=== PATIENT | male | born 1955 | race Caucasian/White ===

== ENCOUNTER 2017-04-04 16:49 | Inpatient (IN) ==
--- NOTE | 2017-04-04 15:29 | Cardiothoracic History & Phys ---
History of Present Illness Chief complaint: Chest pain History of present illness: Mr. Silva is a 62 year old male who presented to [facility] for evaluation of recent onset exertional chest pain. Patient is patient of Dr. Palmer'von who has previously undergone stenting of the circumflex coronary artery. He was admitted for further evaluation. Patient underwent cardiac catheterization at [facility] and was found to have critical blockage of the stented coronary artery distal to the area of stenting as well as 2 additional coronary arteries with significant stenoses. Patient was referred for bypass surgery. Past medical history is significant for an allergy to Bystolic and also for the fact that he is a non-smoker and nondrinker. Review of systems social history and family history are noncontributory. Physical examination patient is well-developed well-nourished man in no acute distress. Examination of head eyes ears nose and throat show the pupils are equal and reactive to light extraocular motions are intact. The oropharynx is benign and examination of the neck shows that there are no masses there is no thyromegaly and there is no lymphadenopathy. Examination chest is clear to percussion auscultation. Examination heart shows no soft signs of murmur or gallop rhythm. Examination of the abdomen is soft nontender there are no masses or organomegaly. Examination extremities shows no cyanosis or edema. Neurological examination is grossly within normal limits. Assessment: Coronary artery disease status post previous coronary stenting. Plan: Coronary bypass grafting on Sunday, April 09, 2017. . Quality Measures - VTE Contraindication to Pharmacological VTE Prophylaxis: High Risk of Bleeding
[~2017-04-04 16:49] MED LIST: ASPIRIN EC 325 MG TABLET PO ONE; CLORAZEPATE 3.75 MG TABLET PO PRN; DEXTROSE 50% 25 GM/50 ML SYRINGE IV PRN; DEXTROSE 50% 25 GM/50 ML VIAL IV PRN; GLUCAGON 1 MG VIAL IM PRN
[2017-04-04] MEDS ORDERED: CARVEDILOL 6.25 MG TABLET PO STA (17:18)
[2017-04-04] MEDS ORDERED: ZALEPLON 5 MG CAPSULE PO PRN (17:32)
[2017-04-04] MEDS ORDERED: ASPIRIN EC 325 MG TABLET PO ONE (18:43)
[2017-04-04] MEDS ORDERED: diphenhydrAMINE CAP 50 MG CAPSULE PO PRN (19:41)
[2017-04-04] MEDS ORDERED: METOPROLOL TARTRATE 25 MG TABLET PO SCH (21:00)
[2017-04-04] MEDS: LISINOPRIL 5 MG TABLET PO SCH (21:24)
[2017-04-04] MEDS: CARVEDILOL 12.5 MG TABLET PO SCH (21:24)
[2017-04-04] MEDS: CHLORHEXIDINE 0.12% ORAL RINSE 60 ML BOTTLE SWISH/SPIT SCH (21:25)
[2017-04-04] MEDS: PANTOPRAZOLE 40 MG TABLET PO SCH (21:25)
[2017-04-04] MEDS: CARVEDILOL 6.25 MG TABLET PO SCH (21:26)
[2017-04-04] MEDS: SODIUM CHLORIDE 0.9% 1,000 ML IV SCH (21:26)
[2017-04-05 04:54] LABS: ABG Base Excess 1.6 MMOL/L (-2.5-2.5); ABG HCO3 25.8 MMOL/L (20-26); ABG Oxygen Saturation 96.3 % (95-100); ABG PCO2 43.1 MM HG (35-48); ABG PO2 81.7 MM HG (80-95); ABG TCO2 23.4 MMOL/L (23-27); Allen Test Positive; Pt O2 Delivery Device Room Air
[2017-04-05 05:50] LABS: Basophils # 0.1 10*3/uL (0.0-0.2); Eosinophils # 0.3 10*3/uL (0.0-0.87); Eosinophils % 3.5 % (0.00-10.9); Hematocrit 38.8 VOL% (42.0-52.0); Hemoglobin 13.2 GM/DL (14.0-18.0); Immature Granulocytes % 0.4 %; Immature Granulocytes Absolute 0.03 #; Lymphocytes # 1.8 10*3/uL (1.4-4.0); Lymphocytes % 22.8 % (21.2-54.2); Mean Corpuscular Hemoglobin 30 PG (27-34); Mean Corpuscular Volume 87.6 FL (87-102); Monocytes # 0.7 10*3/uL (0.11-0.8); Monocytes % 9.2 % (1.7-12.7); Neutrophils # 5.1 10*3/uL (1.4-7.4); Neutrophils % 63.1 % (38.7-73.9); Platelet Count 218 T/CUMM (130-400); Red Blood Count 4.43 MC/CUMM (3.8-5.5); Red Cell Distribution Width 12.8 % (9.3-17.3)
[2017-04-05 06:19] LABS: Albumin 3.7 G/DL (3.4-5.0); Bilirubin,Total 1.2 MG/DL (0.2-1.0); Calcium 8.7 MG/DL (8.5-10.1); Osmolality,Calculated 276.5 MOS/KG (273-304); Potassium 3.9 MMOL/L (3.5-5.1); Total Protein 6.9 G/DL (6.4-8.3)
--- NOTE | 2017-04-05 07:10 | EKG Report ---
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
--- NOTE | 2017-04-05 08:32 | Cardiothoracic Progress Note ---
Cardiothoracic Subjective Interval history: Patient is pain-free and stable and his preoperative laboratory work x-rays and cardiogram all look within normal limits. He will be ready for surgery on Sunday which will be 5 days off Plavix. Exam (Progress Note) - Constitutional Vitals: Period Temp Pulse Resp BP Sys/Mann Pulse Ox Last 24 Hr 97.5 F-98.2 F 69-74 10-18 120-133/65-78 94-98 Result/EKG - Labs CBC & BMP: 04/05/17 05:14 04/05/17 05:14 Labs: Laboratory Results - last 24 hr 04/05/17 04/05/17 04/05/17 04:35 05:14 05:14 WBC 8.0 RBC 4.43 Hgb 13.2 L Hct 38.8 L MCV 87.6 MCH 30 MCHC 34.0 RDW 12.8 Plt Count 218 MPV 11.0 Neut % (Auto) 63.1 Lymph % (Auto) 22.8 [place] % (Auto) 9.2 Eos % (Auto) 3.5 Baso % (Auto) 1.0 H Neut # (Auto) 5.1 Lymph # (Auto) 1.8 [place] # (Auto) 0.7 Eos # (Auto) 0.3 Baso # (Auto) 0.1 Immature Gran % 0.4 Nucleated RBC % 0.0 Immature Gran # 0.03 Nucleated RBCs # 0.00 Immature Plt Fraction 0.0 ABG pH 7.400 ABG pCO2 43.1 ABG pO2 81.7 ABG HCO3 25.8 ABG Total CO2 23.4 ABG O2 Saturation 96.3 ABG Base Excess 1.6 FiO2 28.00 Sodium 139 Potassium 3.9 Chloride 105 Carbon Dioxide 26 Anion Gap 11.9 BUN 15 Creatinine 1.30 GFR Calculation 72 BUN/Creatinine Ratio 11.00 Glucose 89 Calculated Osmolality 276.5 Calcium 8.7 Total Bilirubin 1.20 H AST 23 ALT 25 Alkaline Phosphatase 92 Total Protein 6.9 Albumin 3.7 Globulin 3.2 Albumin/Globulin Ratio 1.1 Quality Measures - VTE Contraindication to Pharmacological VTE Prophylaxis: High Risk of Bleeding
--- NOTE | 2017-04-05 08:49 | XRay Report ---
Exam: XR chest 2V Date: 04/05/2017 4:00 AM Indication: Coronary artery disease Comparison: None Technical: PA lateral Findings: External cardiac leads are present. Degenerative change present along the thoracic spine with anterolateral marginal osteophytes and underlying granuloma change. The mediastinum is otherwise intact. ASVD is present. Degenerative change present in the costochondral cartilage with calcifications. No pneumothorax. Impression: 1. No acute cardiomegaly pathology 2. Underlying granuloma changes 3. Degenerative spondylosis change thoracic spine 4. Underlying ASVD PROCEDURE INTERPRETED AT [facility] DEPARTMENT OF RADIOLOGY Final Report Signed by: Dr. Carlos Brower
[2017-04-05] MEDS: ENOXAPARIN 60 MG/0.6 ML SYRINGE SUBCUT SCH (08:54)
[2017-04-05] MEDS: PANTOPRAZOLE 40 MG TABLET PO SCH ×2 (08:54→20:20)
[2017-04-05] MEDS: CARVEDILOL 12.5 MG TABLET PO SCH ×3 (08:55→20:20)
[2017-04-05] MEDS: LISINOPRIL 5 MG TABLET PO SCH ×3 (08:55→20:20)
[2017-04-05] MEDS: CARVEDILOL 6.25 MG TABLET PO SCH ×3 (08:56→20:20)
[2017-04-05] MEDS: CHLORHEXIDINE 0.12% ORAL RINSE 60 ML BOTTLE SWISH/SPIT SCH ×2 (20:19→20:20)
[2017-04-05] MEDS: SODIUM CHLORIDE 0.9% 1,000 ML IV SCH (20:19)
[2017-04-05] MEDS: ATORVASTATIN 10 MG TABLET PO SCH (20:20)
[2017-04-06] MEDS ORDERED: ACETAMINOPHEN 325 MG TABLET PO PRN (04:01)
--- NOTE | 2017-04-06 06:20 | Cardiothoracic Progress Note ---
Cardiothoracic Subjective Interval history: Patient has been pain-free. Vital signs have been stable. We are planning for surgery Sunday morning. Exam (Progress Note) - Constitutional Vitals: Period Temp Pulse Resp BP Sys/Mann Pulse Ox Last 24 Hr 97.9 F-98.4 F 69-85 16-18 109-127/57-72 94-97 Result/EKG - Labs CBC & BMP: 04/05/17 05:14 04/05/17 05:14 Quality Measures - VTE Contraindication to Pharmacological VTE Prophylaxis: High Risk of Bleeding
[2017-04-06] MEDS: ATORVASTATIN 10 MG TABLET PO SCH ×2 (08:27→20:43)
[2017-04-06] MEDS: CARVEDILOL 6.25 MG TABLET PO SCH ×3 (08:27→20:43)
[2017-04-06] MEDS: CARVEDILOL 12.5 MG TABLET PO SCH ×3 (08:27→20:43)
[2017-04-06] MEDS: ASPIRIN EC 325 MG TABLET PO SCH (08:27)
[2017-04-06] MEDS: ENOXAPARIN 60 MG/0.6 ML SYRINGE SUBCUT SCH (08:27)
[2017-04-06] MEDS: PANTOPRAZOLE 40 MG TABLET PO SCH ×2 (08:28→20:43)
[2017-04-06] MEDS: LISINOPRIL 5 MG TABLET PO SCH ×3 (08:28→20:43)
[2017-04-06] MEDS: CHLORHEXIDINE 0.12% ORAL RINSE 60 ML BOTTLE SWISH/SPIT SCH ×2 (08:28→20:43)
[2017-04-06] MEDS ORDERED: MAGNESIUM HYDROXIDE SUSP 30 ML UDCUP PO PRN (10:56)
[2017-04-06] MEDS: SODIUM CHLORIDE 0.9% 1,000 ML IV SCH (18:42)
[2017-04-06] MEDS: DOCUSATE SODIUM 100 MG CAPSULE PO SCH (20:43)
[2017-04-07] MEDS: CARVEDILOL 6.25 MG TABLET PO SCH ×3 (08:25→21:12)
[2017-04-07] MEDS: ASPIRIN EC 325 MG TABLET PO SCH (08:25)
[2017-04-07] MEDS: CARVEDILOL 12.5 MG TABLET PO SCH ×3 (08:25→21:12)
[2017-04-07] MEDS: LISINOPRIL 5 MG TABLET PO SCH ×3 (08:25→21:12)
[2017-04-07] MEDS: DOCUSATE SODIUM 100 MG CAPSULE PO SCH ×2 (08:26→21:12)
[2017-04-07] MEDS: ATORVASTATIN 10 MG TABLET PO SCH ×2 (08:29→21:12)
[2017-04-07] MEDS: ENOXAPARIN 60 MG/0.6 ML SYRINGE SUBCUT SCH (08:30)
--- NOTE | 2017-04-07 08:37 | Cardiothoracic Progress Note ---
Cardiothoracic Subjective Interval history: Patient is ready for surgery on Sunday. Exam (Progress Note) - Constitutional Vitals: Period Temp Pulse Resp BP Sys/Mann Pulse Ox Last 24 Hr 97.5 F-98.9 F 60-75 12-18 97-125/61-74 93-98 Result/EKG - Labs CBC & BMP: 04/05/17 05:14 04/05/17 05:14 Quality Measures - VTE Contraindication to Pharmacological VTE Prophylaxis: High Risk of Bleeding
[2017-04-07] MEDS: PANTOPRAZOLE 40 MG TABLET PO SCH ×2 (08:39→21:12)
[2017-04-07] MEDS: CHLORHEXIDINE 0.12% ORAL RINSE 60 ML BOTTLE SWISH/SPIT SCH ×2 (09:43→21:12)
[2017-04-07] MEDS: CHLORHEXIDINE 4% SOLN 118 ML BOTTLE TOP SCH (11:54)
[2017-04-07] MEDS: SODIUM CHLORIDE 0.9% 1,000 ML IV SCH (17:20)
--- NOTE | 2017-04-08 07:54 | Cardiothoracic Progress Note ---
Cardiothoracic Subjective Interval history: Patient is ready for surgery in the morning. Exam (Progress Note) - Constitutional Vitals: Period Temp Pulse Resp BP Sys/Mann Pulse Ox Last 24 Hr 97.5 F-98.2 F 64-75 12-20 102-125/61-70 95-100 Result/EKG - Labs CBC & BMP: 04/05/17 05:14 04/05/17 05:14 Quality Measures - VTE Contraindication to Pharmacological VTE Prophylaxis: High Risk of Bleeding
[2017-04-08] MEDS: LISINOPRIL 5 MG TABLET PO SCH ×3 (08:54→20:48)
[2017-04-08] MEDS: DOCUSATE SODIUM 100 MG CAPSULE PO SCH ×2 (08:54→20:48)
[2017-04-08] MEDS: CARVEDILOL 12.5 MG TABLET PO SCH ×3 (08:54→20:48)
[2017-04-08] MEDS: ATORVASTATIN 10 MG TABLET PO SCH ×2 (08:54→20:48)
[2017-04-08] MEDS: PANTOPRAZOLE 40 MG TABLET PO SCH ×2 (08:55→20:48)
[2017-04-08] MEDS: ASPIRIN EC 325 MG TABLET PO SCH (08:55)
[2017-04-08] MEDS: CHLORHEXIDINE 0.12% ORAL RINSE 60 ML BOTTLE SWISH/SPIT SCH ×2 (08:55→20:48)
[2017-04-08] MEDS: CHLORHEXIDINE 4% SOLN 118 ML BOTTLE TOP SCH ×2 (09:35→20:48)
[2017-04-08] MEDS ORDERED: DIAZEPAM 5 MG TABLET PO ONE (11:48)
[2017-04-08] MEDS ORDERED: LACTATED RINGERS 1,000 ML IV SCH (12:00)
[2017-04-09] MEDS ORDERED: PAPAVERINE 60 MG/2 ML VIAL ONE (04:33)
[2017-04-09] MEDS ORDERED: VANCOMYCIN 1,000 MG VIAL ONE (04:34)
[2017-04-09] MEDS ORDERED: ALBUTEROL/IPRATROPIUM 3 ML NEB RESP TX ONE (05:37)
[2017-04-09] MEDS ORDERED: VANCOMYCIN INJ 1,000 MG in SODIUM CHLORIDE 0.9% 250 ML IV ONE (06:00)
[2017-04-09] MEDS ORDERED: DIAZEPAM 5 MG TABLET PO ONE (06:00)
[2017-04-09] MEDS ORDERED: LACTATED RINGERS 1,000 ML IV SCH (06:00)
[2017-04-09] MEDS: CARVEDILOL 12.5 MG TABLET PO SCH ×2 (06:09→09:13)
[2017-04-09] MEDS: PANTOPRAZOLE 40 MG TABLET PO SCH ×4 (06:09→20:18)
[2017-04-09] MEDS ORDERED: CEFUROXIME INJ 1,500 MG in SODIUM CHLORIDE 0.9% 100 ML IV ONE (06:30)
[2017-04-09] MEDS ORDERED: ALBUTEROL 2.5 MG/3 ML NEB RESP TX ONE (06:37)
[2017-04-09 07:43] LABS: ABG Base Excess -1.7 MMOL/L (-2.5-2.5); ABG Oxygen Saturation 99.8 % (95-100); ABG PCO2 33.6 MM HG (35-48); ABG PH 7.425 (7.35-7.45); ABG TCO2 19.5 MMOL/L (23-27); Glucose Heart Surgery 84 MG/DL (74-106); Hematocrit Heart Surgery 36.3 PERCENT (42-52); Hemoglobin Heart Surgery 11.8 G/DL (14.0-18.0); Ionized Calcium Arterial 1.15 MMOL/L (1.21-1.46); PCO2 Patient Temp Arterial 33.6 MMHG; PH Patient Temp Arterial 7.425; Patient Temperature 37 CELCIUS; Potassium Heart/CVR 3.6 MMOL/L (3.5-5.1); Sodium Heart/CVR 138 MMOL/L (135-145)
[2017-04-09] MEDS ORDERED: PHENYLEPHRINE DRIP 40 MG/250 ML PREMIX IV ONE (07:43)
[2017-04-09] MEDS ORDERED: NITROPRUSSIDE 50 MG/2 ML VIAL ONE (07:43)
[2017-04-09] MEDS ORDERED: CALCIUM CHLORIDE 1,000 MG/10 ML SYRINGE IV ONE (07:44)
[2017-04-09] MEDS ORDERED: ALBUMIN 5% 12.5 GM/250 ML VIAL IV ONE (07:44)
[2017-04-09] MEDS ORDERED: POTASSIUM CHLORIDE RIDER 100 ML IV ONE (07:44)
[2017-04-09 07:51] LABS: Apearance,Urine CLEAR (Clear); Bilirubin,Urine Negative (Negative); Blood, Urine Small mg/dL (Negative); Glucose,Urine (UA) Negative (Negative); Ketones,Urine Negative (Negative); Mucus,Urine Occasional /LPF (Occasional); Nitrite,Urine Negative (Negative); Protein,Urine Negative; RBC,Urine 1 /HPF (0-4); Squamous Epithelial Cell,Urine Occasional /HPF (0-10); Urine Color Yellow (Yellow); Urine Specific Gravity 1.012 (1.001-1.035); Urine Urobilinogen < 2.0 EU/DL (0.2-1.0); WBC,Urine 1 /HPF (0-6)
[2017-04-09] MEDS: ASPIRIN EC 325 MG TABLET PO SCH (09:12)
[2017-04-09] MEDS: DOCUSATE SODIUM 100 MG CAPSULE PO SCH (09:12)
[2017-04-09 09:13] LABS: Hematocrit Heart Surgery 25.9 PERCENT (42-52); Hemoglobin Heart Surgery 8.3 G/DL (14.0-18.0); PCO2 Patient Temp Venous 39.3 MM HG; PH Patient Temp Venous 7.398; PO2 Patient Temp Venous 39.2 MM HG; VBG Base Excess -0.3 MEQ/L (0-4); VBG Oxygen Saturation 82.7 %; VBG PCO2 45.4 MMHG (41-51); VBG PH 7.355; VBG PO2 48.1 MMHG (17-40)
[2017-04-09] MEDS: ATORVASTATIN 10 MG TABLET PO SCH (09:13)
[2017-04-09] MEDS: CHLORHEXIDINE 0.12% ORAL RINSE 60 ML BOTTLE SWISH/SPIT SCH (09:13)
[2017-04-09] MEDS: CHLORHEXIDINE 4% SOLN 118 ML BOTTLE TOP SCH (09:13)
[2017-04-09] MEDS: LISINOPRIL 5 MG TABLET PO SCH (09:13)
[2017-04-09 09:42] LABS: Hematocrit Heart Surgery 29.4 PERCENT (42-52); Hemoglobin Heart Surgery 9.5 G/DL (14.0-18.0); PH Patient Temp Venous 7.402; PO2 Patient Temp Venous 39.9 MM HG; Potassium Heart/CVR 4.6 MMOL/L (3.5-5.1); VBG Base Excess -0.2 MEQ/L (0-4); VBG Oxygen Saturation 83.1 %; VBG PCO2 45.1 MMHG (41-51); VBG PH 7.359; VBG PO2 49.1 MMHG (17-40)
[2017-04-09 10:10] LABS: Hematocrit Heart Surgery 26.9 PERCENT (42-52); Hemoglobin Heart Surgery 8.6 G/DL (14.0-18.0); PH Patient Temp Venous 7.371; Potassium Heart/CVR 4.9 MMOL/L (3.5-5.1); VBG Base Excess -0.4 MEQ/L (0-4); VBG HCO3 23.7 MEQ/L (24-28); VBG Oxygen Saturation 68.1 %; VBG PCO2 45.1 MMHG (41-51); VBG PH 7.356; VBG PO2 37.5 MMHG (17-40)
[2017-04-09] MEDS ORDERED: PHENYLEPHRINE DRIP 20 MG/250 ML PREMIX IV ONE ×2 (10:25→12:22)
[2017-04-09] MEDS ORDERED: FUROSEMIDE 20 MG/2 ML VIAL ONE (10:25)
[2017-04-09] MEDS ORDERED: SODIUM BICARBONATE 50 MEQ/50 ML SYRINGE IV ONE (10:25)
[2017-04-09] MEDS ORDERED: MAGNESIUM SULFATE 1 GM/2 ML VIAL ONE (10:25)
[2017-04-09] MEDS ORDERED: HEPARIN 10,000 UNIT/10 ML VIAL ONE (10:25)
[2017-04-09] MEDS ORDERED: ALBUMIN 25% 25 GM/100 ML VIAL IV ONE (10:25)
[2017-04-09] MEDS ORDERED: DEXTROSE 5% KCL 20 MEQ 20 MEQ/1,000 ML BAG IV ONE (10:25)
[2017-04-09] MEDS ORDERED: methylPREDNISolone SOD SUC 1,000 MG/8 ML VIAL ONE (10:25)
[2017-04-09] MEDS ORDERED: PROTAMINE SULFATE 250 MG/25 ML VIAL IV ONE (10:25)
[2017-04-09 10:42] LABS: ABG Base Excess -1.1 MMOL/L (-2.5-2.5); ABG HCO3 23.5 MMOL/L (20-26); ABG Oxygen Saturation 99.8 % (95-100); ABG PCO2 33.9 MM HG (35-48); ABG PH 7.433 (7.35-7.45); ABG TCO2 20.8 MMOL/L (23-27); Glucose Heart Surgery 140 MG/DL (74-106); Hematocrit Heart Surgery 28.7 PERCENT (42-52); Hemoglobin Heart Surgery 9.3 G/DL (14.0-18.0); Ionized Calcium Arterial 1.14 MMOL/L (1.21-1.46); PCO2 Patient Temp Arterial 33.9 MMHG; PH Patient Temp Arterial 7.433; Patient Temperature 37 CELCIUS; Potassium Heart/CVR 3.7 MMOL/L (3.5-5.1); Sodium Heart/CVR 137 MMOL/L (135-145)
[2017-04-09] MEDS ORDERED: PROTAMINE SULFATE 50 MG/5 ML VIAL IV ONE ×2 (11:30→11:39)
[2017-04-09] MEDS: LACTATED RINGERS 1,000 ML IV PRN ×4 (11:30→22:28)
--- NOTE | 2017-04-09 11:38 | Operative Note ---
Date of procedure: 04/09/17 Pre-op diagnosis: Coronary artery disease Post-op diagnosis: same Procedure: Procedure: Coronary bypass grafting 3 with saphenous vein graft to the first and second circumflex marginal and to the right coronary artery. Findings: Patient is a 62-year-old man who presented to [facility] with symptoms of substernal chest discomfort and a history of previous coronary stenting. He underwent cardiac catheterization demonstrating triple-vessel disease with a normal anterior descending coronary artery. Patient was referred for bypass surgery in the time of surgery saphenous vein grafts were placed to the first and second circumflex marginal coronary arteries into the right coronary artery. The distal vessels were all of adequate size and free of disease at the site of anastomosis. Patient tolerated the procedure well and was returned to recovery in satisfactory condition. Procedure: Patient brought the operating room placed on the operating table in supine position. After satisfactory induction of general anesthesia the chest abdomen and legs were prepped and draped in sterile fashion. Greater saphenous vein was harvested from the left lower leg and prepared as an arterial graft. Incision in the leg was closed with 3-0 subcutaneous Monocryl and 3-0 subcuticular Monocryl. A small incision was made in the right lower leg but the saphenous vein was too small in that leg and so this incision also was closed with 3-0 subcutaneous Monocryl and 3-0 subcuticular Monocryl. A standard sternotomy incision was made and the sternum was divided and the heart suspended in a pericardial cradle. Patient was prepared for cardiopulmonary bypass with systemic heparinization cannulation of the ascending aorta and right atrium. Cardiopulmonary bypass was begun and the heart was arrested with cardioplegia solution injected into the aortic root. Heart was protected during the period of crossclamping with topical saline slush. Distal anastomoses were constructed as noted above and then the aorta was unclamped reestablishing cardiac action. Proximal anastomoses were constructed between the inflow ends of the saphenous vein graft and the ascending aorta. Patient was then weaned from cardiopulmonary bypass without difficulty and heparin effect reversed with protamine. Decannulation was carried out with a defects in the ascending aorta and right atrium closed with 3-0 Prolene. The operative field was inspected for hemostasis and this was considered adequate the incision was closed with interrupted stainless steel wire and the sternum and 0 Monopril in the presternal fascia. Skin was closed with 3-0 subcuticular Monocryl. 2 chest tubes were left in the anterior mediastinum and brought out through separate stab incisions. Sterile dressings were applied and the patient was returned to recovery in satisfactory condition. Anesthesia: CAROLINEA Surgeon / Physician: Antony Serna Estimated blood loss: other (Unable to determine because of cardiopulmonary bypass) Condition: stable Disposition: ICU Results - Labs CBC & BMP: 04/09/17 10:39 04/05/17 05:14 Discharge Plan - Discharge Medications No Action Lisinopril 5 mg PO TID Atorvastatin [Lipitor] 10 mg PO BID Carvedilol [Coreg] 18.75 mg PO TID Pantoprazole Tab [Protonix Tab] 40 mg PO BID Clorazepate [Tranxene] 7.5 mg PO QID Aspirin 325 mg PO DAILY Azithromycin [Azithromycin Z Pack] 250 mg PO DIRECTED predniSONE TAB [PredniSONE] 20 mg PO DAILY Clopidogrel [Plavix] 75 mg PO DAILY - Follow Up or Referral - Forms/Instructions
[2017-04-09] MEDS ORDERED: SUFentanil 250 MCG/5 ML AMP ONE (11:40)
[2017-04-09] MEDS ORDERED: MIDAZOLAM 10 MG/2 ML VIAL ONE (11:40)
[2017-04-09] MEDS ORDERED: POTASSIUM CHLORIDE RIDER 10 MEQ in PREMIX 1 EACH IV PRN (11:55)
[2017-04-09] MEDS ORDERED: MAGNESIUM SULF RIDER 2 GM in PREMIX 1 EACH IV PRN (11:55)
[2017-04-09] MEDS ORDERED: MORPHINE 2 MG/1 ML SYRINGE IV PRN (11:55)
[2017-04-09] MEDS ORDERED: ACETAMINOPHEN 650 MG SUPP RECTAL PRN (11:55)
[2017-04-09] MEDS ORDERED: CALCIUM CHLORIDE 1,000 MG/10 ML SYRINGE IV PRN (11:55)
[2017-04-09] MEDS ORDERED: DEXTROSE 50% 25 GM/50 ML SYRINGE IV PRN ×2 (11:55)
[2017-04-09] MEDS ORDERED: VECURONIUM 10 MG VIAL IV PRN ×2 (11:55)
[2017-04-09] MEDS ORDERED: LACTATED RINGERS 250 ML IV PRN (11:55)
[2017-04-09] MEDS ORDERED: MORPHINE 10 MG/1 ML VIAL IV PRN (11:55)
[2017-04-09] MEDS ORDERED: INSULIN REGULAR 100 UNIT/ML IV ONE (11:55)
[2017-04-09] MEDS ORDERED: PHENYLEPHRINE DRIP 40 MG/250 ML PREMIX IV PRN (11:55)
[2017-04-09] MEDS ORDERED: INSULIN REGULAR 100 UNIT/ML IV PRN (11:55)
[2017-04-09] MEDS ORDERED: MAGNESIUM SULF RIDER 4 GM in PREMIX 1 EACH IV PRN (11:55)
[2017-04-09] MEDS ORDERED: NITROPRUSSIDE 100 MG in DEXTROSE 5% 250 ML IV PRN (11:55)
[2017-04-09] MEDS: MIDAZOLAM 10 MG/2 ML VIAL IV PRN ×3 (12:00→12:30)
[2017-04-09] MEDS ORDERED: KETOROLAC 30 MG/1 ML VIAL IV SCH (12:00)
[2017-04-09] MEDS ORDERED: INSULIN REGULAR DRIP 100 ML IV SCH (12:00)
[2017-04-09] MEDS ORDERED: SODIUM CHLORIDE 0.45% 1,000 ML IV SCH ×2 (12:00)
[2017-04-09] MEDS ORDERED: MIDAZOLAM 2 MG/2 ML VIAL ONE (12:02)
[2017-04-09 12:04] LABS: ABG Base Excess -0.6 MMOL/L (-2.5-2.5); ABG Oxygen Saturation 99.1 % (95-100); ABG PCO2 33.1 MM HG (35-48); ABG PH 7.449 (7.35-7.45); Glucose Heart Surgery 103 MG/DL (74-106); Hematocrit Heart Surgery 28.5 PERCENT (42-52); Hemoglobin Heart Surgery 9.2 G/DL (14.0-18.0)
[2017-04-09] MEDS: MIDAZOLAM 2 MG/2 ML VIAL IV PRN (12:05)
[2017-04-09 12:06] LABS: Basophils # 0.1 10*3/uL (0.0-0.2); Basophils % 0.3 % (0.0-0.8); Eosinophils # 0.1 10*3/uL (0.0-0.87); Eosinophils % 0.7 % (0.00-10.9); Hematocrit 27.4 VOL% (42.0-52.0); Hemoglobin 9.2 GM/DL (14.0-18.0); Immature Granulocytes % 1.1 %; Lymphocytes % 16.3 % (21.2-54.2); Mean Corpuscular HGB Conc 33.6 GM/DL (32-36); Mean Corpuscular Hemoglobin 30 PG (27-34); Mean Corpuscular Volume 90.1 FL (87-102); Mean Platelet Volume 11.1 FL (9.6-12.0); Monocytes # 1.8 10*3/uL (0.11-0.8); Monocytes % 9.6 % (1.7-12.7); Neutrophils # 13.4 10*3/uL (1.4-7.4); Platelet Count 224 T/CUMM (130-400); Red Blood Count 3.04 MC/CUMM (3.8-5.5); White Blood Count 18.6 T/CUMM (4-12)
[2017-04-09] MEDS: ALBUMIN 5% 12.5 GM in PREMIX 1 EACH IV PRN ×3 (12:15→22:27)
[2017-04-09] MEDS ORDERED: VECURONIUM 10 MG VIAL IV ONE (12:22)
[2017-04-09] MEDS ORDERED: NITROGLYCERIN DRIP 50 MG/250 ML BOTTLE IV ONE (12:22)
[2017-04-09] MEDS ORDERED: ETOMIDATE 20 MG/10 ML VIAL IV ONE (12:22)
[2017-04-09] MEDS ORDERED: SEVOFLURANE 1 UNIT/15 MINUTE INH ONE (12:22)
[2017-04-09] MEDS ORDERED: HEPARIN/NACL 0.9% 2 UNITS/ML 500 ML IV ONE (12:22)
[2017-04-09] MEDS ORDERED: MINERAL OIL/PETROLATUM OPH OINT 3.5 GM TUBE ONE (12:22)
[2017-04-09] MEDS ORDERED: AMINOCAPROIC ACID 5,000 MG/20 ML VIAL IV ONE (12:23)
[2017-04-09] MEDS ORDERED: SODIUM CHLORIDE 0.9% 250 ML IV ONE (12:23)
[2017-04-09] MEDS ORDERED: LACTATED RINGERS 1,000 ML IV ONE (12:23)
[2017-04-09] MEDS ORDERED: SODIUM CHLORIDE 0.9% 3,000 ML IV ONE (12:23)
[2017-04-09 12:26] LABS: Hypochromasia 1+
[2017-04-09 12:27] LABS: Giant Platelets Few; Microcytosis Slight; Platelet Estimate Adequate
[2017-04-09 12:30] LABS: INR 1.3; PT Patient Result 14.4 SECS
[2017-04-09 12:36] LABS: Albumin 3.2 G/DL (3.4-5.0); Bilirubin,Total 0.9 MG/DL (0.2-1.0); Calcium 8.4 MG/DL (8.5-10.1); Osmolality,Calculated 284.3 MOS/KG (273-304); Potassium 4.1 MMOL/L (3.5-5.1); Total Protein 5.5 G/DL (6.4-8.3)
[2017-04-09 12:47] LABS: CKMB % 8.8 %
[2017-04-09 12:50] LABS: Troponin I Only 14.4 NG/ML (0.00-0.045)
[2017-04-09] MEDS: POTASSIUM CHLORIDE RIDER 20 MEQ in PREMIX 1 EACH IV PRN ×3 (12:58→20:13)
--- NOTE | 2017-04-09 13:01 | XRay Report ---
History: Line placement. Postop thoracotomy Date: 04/09/2017 Study: Chest x-ray AP portable Comparison exam: April 05, 2017 The patient is status post interval median sternotomy. Endotracheal tube is well-positioned. Chest drainage tubes overlie the mediastinum and left lung base. A right subclavian [place]-Heydi catheter is positioned with its tip over the proximal descending right pulmonary artery. A right IJ central line is positioned with its tip over the right atrium. There is no pneumothorax. The cardiac silhouette is upper normal size. The mediastinal contours are stable for immediate postoperative appearance. There is no overt pulmonary vascular engorgement. The lungs are generally clear for shallow breath, aside from some mild platelike subsegmental atelectasis in the left base. Osseous structures are unremarkable. Impression: Postop thoracotomy with mild atelectatic changes in the left lung base. Satisfactory positioning of the supporting tubes. No pneumothorax PROCEDURE INTERPRETED AT [facility] DEPARTMENT OF RADIOLOGY Final Report Signed by: Dr. Apolonia Domínguez
[2017-04-09 13:29] LABS: ABG Base Excess -1.1 MMOL/L (-2.5-2.5); ABG HCO3 23.5 MMOL/L (20-26); ABG Oxygen Saturation 98.5 % (95-100); ABG PCO2 33.2 MM HG (35-48); ABG PH 7.439 (7.35-7.45); ABG TCO2 20.3 MMOL/L (23-27); Glucose Heart Surgery 117 MG/DL (74-106); Hematocrit Heart Surgery 32.2 PERCENT (42-52); Hemoglobin Heart Surgery 10.4 G/DL (14.0-18.0); Potassium Heart/CVR 4.5 MMOL/L (3.5-5.1)
[2017-04-09] MEDS: KETOROLAC 30 MG/1 ML VIAL IV SCH ×2 (14:13→20:10)
[2017-04-09 15:15] LABS: ABG Base Excess -1.5 MMOL/L (-2.5-2.5); ABG HCO3 23.2 MMOL/L (20-26); ABG Oxygen Saturation 98.8 % (95-100); ABG PCO2 44.5 MM HG (35-48); ABG PH 7.345 (7.35-7.45); ABG TCO2 22.3 MMOL/L (23-27); Glucose Heart Surgery 154 MG/DL (74-106); Hematocrit Heart Surgery 30.1 PERCENT (42-52); Hemoglobin Heart Surgery 9.7 G/DL (14.0-18.0); Potassium Heart/CVR 4.1 MMOL/L (3.5-5.1)
[2017-04-09 17:50] LABS: ABG Base Excess -1.1 MMOL/L (-2.5-2.5); ABG HCO3 23.5 MMOL/L (20-26); ABG PCO2 35.8 MM HG (35-48); ABG PH 7.416 (7.35-7.45); ABG TCO2 20.9 MMOL/L (23-27); Glucose Heart Surgery 176 MG/DL (74-106); Hematocrit Heart Surgery 31.3 PERCENT (42-52); Hemoglobin Heart Surgery 10.1 G/DL (14.0-18.0); Potassium Heart/CVR 4.7 MMOL/L (3.5-5.1)
[2017-04-09] MEDS: INSULIN REGULAR 100 UNIT/ML SUBCUT SCH ×2 (18:36→22:24)
[2017-04-09] MEDS: ONDANSETRON 4 MG/2 ML VIAL IV PRN (18:38)
[2017-04-09 19:42] LABS: ABG Base Excess -2.2 MMOL/L (-2.5-2.5); ABG HCO3 22.5 MMOL/L (20-26); ABG Oxygen Saturation 98.4 % (95-100); ABG PCO2 42.1 MM HG (35-48); ABG PH 7.351 (7.35-7.45); ABG TCO2 21.3 MMOL/L (23-27); Glucose Heart Surgery 178 MG/DL (74-106); Hematocrit Heart Surgery 30.6 PERCENT (42-52); Hemoglobin Heart Surgery 9.9 G/DL (14.0-18.0); Potassium Heart/CVR 4.4 MMOL/L (3.5-5.1)
[2017-04-09 20:28] LABS: CKMB % 8.2 %
[2017-04-09 20:31] LABS: Troponin I Only 15.2 NG/ML (0.00-0.045)
[2017-04-09] MEDS ORDERED: CHLORHEXIDINE 0.12% ORAL RINSE 60 ML BOTTLE SWISH/SPIT SCH (21:00)
[2017-04-09] MEDS ORDERED: INSULIN REGULAR 100 UNIT/ML SUBCUT SCH (22:00)
[2017-04-09] MEDS: VANCOMYCIN INJ 1,000 MG in SODIUM CHLORIDE 0.9% 250 ML IV SCH (22:59)
[2017-04-10] MEDS: KETOROLAC 30 MG/1 ML VIAL IV SCH ×4 (01:48→20:56)
[2017-04-10] MEDS: INSULIN REGULAR 100 UNIT/ML SUBCUT SCH ×2 (02:00→05:52)
[2017-04-10] MEDS: ALBUMIN 5% 12.5 GM in PREMIX 1 EACH IV PRN (03:41)
[2017-04-10 03:52] LABS: ABG Base Excess -2.6 MMOL/L (-2.5-2.5); ABG HCO3 22.2 MMOL/L (20-26); ABG Oxygen Saturation 98.6 % (95-100); ABG PCO2 39.4 MM HG (35-48); ABG PH 7.364 (7.35-7.45); ABG TCO2 20.9 MMOL/L (23-27); Glucose Heart Surgery 134 MG/DL (74-106); Hemoglobin Heart Surgery 8.7 G/DL (14.0-18.0); Potassium Heart/CVR 4.7 MMOL/L (3.5-5.1)
[2017-04-10] MEDS: ONDANSETRON 4 MG/2 ML VIAL IV PRN (03:55)
[2017-04-10 03:56] LABS: Basophils % 0.1 % (0.0-0.8); Hematocrit 26.2 VOL% (42.0-52.0); Hemoglobin 8.8 GM/DL (14.0-18.0); Immature Granulocytes % 0.4 %; Immature Granulocytes Absolute 0.08 #; Lymphocytes % 5.4 % (21.2-54.2); Mean Corpuscular HGB Conc 33.6 GM/DL (32-36); Mean Corpuscular Hemoglobin 30 PG (27-34); Mean Corpuscular Volume 90.3 FL (87-102); Mean Platelet Volume 11.6 FL (9.6-12.0); Monocytes # 1.4 10*3/uL (0.11-0.8); Monocytes % 7.7 % (1.7-12.7); Neutrophils # 15.6 10*3/uL (1.4-7.4); Neutrophils % 86.4 % (38.7-73.9); Platelet Count 177 T/CUMM (130-400); Red Cell Distribution Width 14.4 % (9.3-17.3)
[2017-04-10] MEDS: LACTATED RINGERS 1,000 ML IV PRN (04:00)
[2017-04-10 04:33] LABS: Albumin 3.3 G/DL (3.4-5.0); Bilirubin,Direct 0.19 MG/DL (0.0-0.20); Bilirubin,Total 0.7 MG/DL (0.2-1.0); Calcium 7.7 MG/DL (8.5-10.1); Osmolality,Calculated 288.3 MOS/KG (273-304); Potassium 4.7 MMOL/L (3.5-5.1); Total Protein 5.3 G/DL (6.4-8.3)
[2017-04-10 04:41] LABS: Troponin I Only 10.6 NG/ML (0.00-0.045)
[2017-04-10] MEDS: MIDAZOLAM 2 MG/2 ML VIAL IV PRN (06:08)
--- NOTE | 2017-04-10 06:33 | Cardiothoracic Progress Note ---
Cardiothoracic Subjective Interval history: Patient is awake alert and extubated. He was stable through the night and his vital signs are stable this morning and is breathing comfortably. Blood gases were satisfactory post extubation. Cardiac output has been stable around 5 L/ min. Chest tube drainage has been minimal and his chest tubes have been discontinued. Blood work and x-rays from this morning are satisfactory and compatible with postoperative day #1. We will plan to transfer to telemetry later this morning. Exam (Progress Note) - Constitutional Vitals: Period Temp Pulse Resp BP Sys/Mann Pulse Ox Last 24 Hr 96.4 F-99.6 F 80-95 8-20 89-151/45-89 98-100 Result/EKG - Labs CBC & BMP: 04/10/17 03:45 04/10/17 03:45 Labs: Laboratory Results - last 24 hr 04/08/17 04/09/17 04/09/17 10:53 07:40 07:41 WBC RBC Hgb Hct MCV MCH MCHC RDW Plt Count MPV Neut % (Auto) Lymph % (Auto) [place] % (Auto) Eos % (Auto) Baso % (Auto) Neut # (Auto) Lymph # (Auto) [place] # (Auto) Eos # (Auto) Baso # (Auto) Immature Gran % Nucleated RBC % Immature Gran # Nucleated RBCs # Platelet Estimate Giant Platelets Immature Plt Fraction Hypochromasia Microcytosis INR PT Patient/Control Mix Circ Anticoag PTT Patient Temperature 37 ABG pH 7.425 ABG pH at Pt Temp 7.425 ABG pCO2 33.6 L ABG pCO2 at Pt Temp 33.6 ABG pO2 508.0 H ABG pO2 at Pt Temp 508.0 ABG HCO3 23.0 ABG Total CO2 19.5 L ABG O2 Saturation 99.8 ABG Base Excess -1.7 ABG Sodium 138 VBG pH VBG pCO2 VBG pO2 VBG HCO3 VBG Total CO2 VBG O2 Saturation VBG Base Excess Hemoglobin 11.8 L Hematocrit 36.3 L Potassium 3.6 Glucose 84 Ionized Calcium 1.15 L FiO2 Sodium Chloride Carbon Dioxide Anion Gap BUN Creatinine GFR Calculation BUN/Creatinine Ratio Calculated Osmolality Calcium Venous Ioniz Calcium Magnesium Total Bilirubin Direct Bilirubin AST ALT Alkaline Phosphatase Total Creatine Kinase CK-MB (CK-2) CK and CKMB Interp Troponin I Total Protein Albumin Globulin Albumin/Globulin Ratio Urine Color Yellow Urine Appearance Clear Urine pH 5.0 Ur Specific [place] 1.012 Urine Protein Negative Urine Glucose (UA) Negative Urine Ketones Negative Urine Blood Small Urine Nitrate Negative Urine Bilirubin Negative Urine Urobilinogen < 2.0 H Urine Leukocytes Negative Urine RBC 1 Urine WBC 1 Ur Squamous Epith Cells Occasional Urine Mucus Occasional Ur Culture Indicated? Not indicated Blood Type A NEGATIVE Antibody Screen Negative Crossmatch See Detail 04/09/17 04/09/17 04/09/17 07:42 09:12 09:37 WBC RBC Hgb Hct MCV MCH MCHC RDW Plt Count 175 MPV Neut % (Auto) Lymph % (Auto) [place] % (Auto) Eos % (Auto) Baso % (Auto) Neut # (Auto) Lymph # (Auto) [place] # (Auto) Eos # (Auto) Baso # (Auto) Immature Gran % Nucleated RBC % Immature Gran # Nucleated RBCs # Platelet Estimate Giant Platelets Immature Plt Fraction Hypochromasia Microcytosis INR PT Patient/Control Mix Circ Anticoag PTT Patient Temperature 34 34 ABG pH ABG pH at Pt Temp 7.398 7.402 ABG pCO2 ABG pCO2 at Pt Temp 39.3 39.0 ABG pO2 ABG pO2 at Pt Temp 39.2 39.9 ABG HCO3 ABG Total CO2 ABG O2 Saturation ABG Base Excess ABG Sodium 131 L 134 L VBG pH 7.355 7.359 VBG pCO2 45.4 45.1 VBG pO2 48.1 H 49.1 H VBG HCO3 24.0 24.0 VBG Total CO2 23.7 23.4 VBG O2 Saturation 82.7 83.1 VBG Base Excess -0.3 L -0.2 L Hemoglobin 8.3 L D 9.5 L Hematocrit 25.9 L 29.4 L Potassium 5.0 4.6 Glucose 279 H 201 H Ionized Calcium FiO2 100.00 80.00 Sodium Chloride Carbon Dioxide Anion Gap BUN Creatinine GFR Calculation BUN/Creatinine Ratio Calculated Osmolality Calcium Venous Ioniz Calcium 0.94 L 1.02 L Magnesium Total Bilirubin Direct Bilirubin AST ALT Alkaline Phosphatase Total Creatine Kinase CK-MB (CK-2) CK and CKMB Interp Troponin I Total Protein Albumin Globulin Albumin/Globulin Ratio Urine Color Urine Appearance Urine pH Ur Specific [place] Urine Protein Urine Glucose (UA) Urine Ketones Urine Blood Urine Nitrate Urine Bilirubin Urine Urobilinogen Urine Leukocytes Urine RBC Urine WBC Ur Squamous Epith Cells Urine Mucus Ur Culture Indicated? Blood Type Antibody Screen Crossmatch 04/09/17 04/09/17 04/09/17 10:13 10:39 10:39 WBC RBC Hgb Hct MCV MCH MCHC RDW Plt Count 180 MPV Neut % (Auto) Lymph % (Auto) [place] % (Auto) Eos % (Auto) Baso % (Auto) Neut # (Auto) Lymph # (Auto) [place] # (Auto) Eos # (Auto) Baso # (Auto) Immature Gran % Nucleated RBC % Immature Gran # Nucleated RBCs # Platelet Estimate Giant Platelets Immature Plt Fraction Hypochromasia Microcytosis INR PT Patient/Control Mix Circ Anticoag PTT Patient Temperature 36 37 ABG pH 7.433 ABG pH at Pt Temp 7.371 7.433 ABG pCO2 33.9 L ABG pCO2 at Pt Temp 43.0 33.9 ABG pO2 400.0 H ABG pO2 at Pt Temp 35.0 400.0 ABG HCO3 23.5 ABG Total CO2 20.8 L ABG O2 Saturation 99.8 ABG Base Excess -1.1 ABG Sodium 135 137 VBG pH 7.356 VBG pCO2 45.1 VBG pO2 37.5 VBG HCO3 23.7 L VBG Total CO2 23.6 VBG O2 Saturation 68.1 VBG Base Excess -0.4 L Hemoglobin 8.6 L 9.3 L Hematocrit 26.9 L 28.7 L Potassium 4.9 3.7 Glucose 185 H 140 H Ionized Calcium 1.14 L FiO2 80.00 Sodium Chloride Carbon Dioxide Anion Gap BUN Creatinine GFR Calculation BUN/Creatinine Ratio Calculated Osmolality Calcium Venous Ioniz Calcium 0.84 L Magnesium Total Bilirubin Direct Bilirubin AST ALT Alkaline Phosphatase Total Creatine Kinase CK-MB (CK-2) CK and CKMB Interp Troponin I Total Protein Albumin Globulin Albumin/Globulin Ratio Urine Color Urine Appearance Urine pH Ur Specific [place] Urine Protein Urine Glucose (UA) Urine Ketones Urine Blood Urine Nitrate Urine Bilirubin Urine Urobilinogen Urine Leukocytes Urine RBC Urine WBC Ur Squamous Epith Cells Urine Mucus Ur Culture Indicated? Blood Type Antibody Screen Crossmatch 04/09/17 04/09/17 04/09/17 12:00 12:00 12:02 WBC 18.6 H RBC 3.04 L Hgb 9.2 L Hct 27.4 L MCV 90.1 MCH 30 MCHC 33.6 RDW 13.0 Plt Count 224 D MPV 11.1 Neut % (Auto) 72.0 Lymph % (Auto) 16.3 L [place] % (Auto) 9.6 Eos % (Auto) 0.7 Baso % (Auto) 0.3 Neut # (Auto) 13.4 H Lymph # (Auto) 3.0 [place] # (Auto) 1.8 H Eos # (Auto) 0.1 Baso # (Auto) 0.1 Immature Gran % 1.1 Nucleated RBC % 0.0 Immature Gran # 0.20 Nucleated RBCs # 0.00 Platelet Estimate Adequate Giant Platelets Few Immature Plt Fraction 0.0 Hypochromasia 1+ Microcytosis Slight INR 1.3 PT Patient/Control Mix 14.4 Circ Anticoag PTT 28.0 Patient Temperature ABG pH 7.449 ABG pH at Pt Temp ABG pCO2 33.1 L ABG pCO2 at Pt Temp ABG pO2 138.0 H ABG pO2 at Pt Temp ABG HCO3 24.0 ABG Total CO2 21.0 L ABG O2 Saturation 99.1 ABG Base Excess -0.6 ABG Sodium VBG pH VBG pCO2 VBG pO2 VBG HCO3 VBG Total CO2 VBG O2 Saturation VBG Base Excess Hemoglobin 9.2 L Hematocrit 28.5 L Potassium 4.0 Glucose 103 Ionized Calcium FiO2 Sodium Chloride Carbon Dioxide Anion Gap BUN Creatinine GFR Calculation BUN/Creatinine Ratio Calculated Osmolality Calcium Venous Ioniz Calcium Magnesium Total Bilirubin Direct Bilirubin AST ALT Alkaline Phosphatase Total Creatine Kinase CK-MB (CK-2) CK and CKMB Interp Troponin I Total Protein Albumin Globulin Albumin/Globulin Ratio Urine Color Urine Appearance Urine pH Ur Specific [place] Urine Protein Urine Glucose (UA) Urine Ketones Urine Blood Urine Nitrate Urine Bilirubin Urine Urobilinogen Urine Leukocytes Urine RBC Urine WBC Ur Squamous Epith Cells Urine Mucus Ur Culture Indicated? Blood Type Antibody Screen Crossmatch 04/09/17 04/09/17 04/09/17 12:02 12:02 12:02 WBC RBC Hgb Hct MCV MCH MCHC RDW Plt Count MPV Neut % (Auto) Lymph % (Auto) [place] % (Auto) Eos % (Auto) Baso % (Auto) Neut # (Auto) Lymph # (Auto) [place] # (Auto) Eos # (Auto) Baso # (Auto) Immature Gran % Nucleated RBC % Immature Gran # Nucleated RBCs # Platelet Estimate Giant Platelets Immature Plt Fraction Hypochromasia Microcytosis INR PT Patient/Control Mix Circ Anticoag PTT Patient Temperature ABG pH ABG pH at Pt Temp ABG pCO2 ABG pCO2 at Pt Temp ABG pO2 ABG pO2 at Pt Temp ABG HCO3 ABG Total CO2 ABG O2 Saturation ABG Base Excess ABG Sodium VBG pH VBG pCO2 VBG pO2 VBG HCO3 VBG Total CO2 VBG O2 Saturation VBG Base Excess Hemoglobin Hematocrit Potassium 4.1 Glucose 104 Ionized Calcium FiO2 Sodium 141 Chloride 108 H Carbon Dioxide 25 Anion Gap 12.1 BUN 23 H Creatinine 1.40 H GFR Calculation 65 BUN/Creatinine Ratio 16.00 Calculated Osmolality 284.3 Calcium 8.4 L Venous Ioniz Calcium Magnesium 2.3 Total Bilirubin 0.90 Direct Bilirubin AST 46 H ALT 26 Alkaline Phosphatase 63 Total Creatine Kinase 286 CK-MB (CK-2) 25.1 H CK and CKMB Interp 8.8 Troponin I 14.400 H Total Protein 5.5 L Albumin 3.2 L Globulin 2.3 Albumin/Globulin Ratio 1.3 Urine Color Urine Appearance Urine pH Ur Specific [place] Urine Protein Urine Glucose (UA) Urine Ketones Urine Blood Urine Nitrate Urine Bilirubin Urine Urobilinogen Urine Leukocytes Urine RBC Urine WBC Ur Squamous Epith Cells Urine Mucus Ur Culture Indicated? Blood Type Antibody Screen Crossmatch 04/09/17 04/09/17 04/09/17 13:25 15:10 17:16 WBC RBC Hgb Hct MCV MCH MCHC RDW Plt Count MPV Neut % (Auto) Lymph % (Auto) [place] % (Auto) Eos % (Auto) Baso % (Auto) Neut # (Auto) Lymph # (Auto) [place] # (Auto) Eos # (Auto) Baso # (Auto) Immature Gran % Nucleated RBC % Immature Gran # Nucleated RBCs # Platelet Estimate Giant Platelets Immature Plt Fraction Hypochromasia Microcytosis INR PT Patient/Control Mix Circ Anticoag PTT Patient Temperature ABG pH 7.439 7.345 L 7.416 ABG pH at Pt Temp ABG pCO2 33.2 L 44.5 35.8 ABG pCO2 at Pt Temp ABG pO2 112.0 H 138.0 H 141.0 H ABG pO2 at Pt Temp ABG HCO3 23.5 23.2 23.5 ABG Total CO2 20.3 L 22.3 L 20.9 L ABG O2 Saturation 98.5 98.8 99.0 ABG Base Excess -1.1 -1.5 -1.1 ABG Sodium VBG pH VBG pCO2 VBG pO2 VBG HCO3 VBG Total CO2 VBG O2 Saturation VBG Base Excess Hemoglobin 10.4 L 9.7 L 10.1 L Hematocrit 32.2 L 30.1 L 31.3 L Potassium 4.5 4.1 4.7 Glucose 117 H 154 H 176 H Ionized Calcium FiO2 Sodium Chloride Carbon Dioxide Anion Gap BUN Creatinine GFR Calculation BUN/Creatinine Ratio Calculated Osmolality Calcium Venous Ioniz Calcium Magnesium Total Bilirubin Direct Bilirubin AST ALT Alkaline Phosphatase Total Creatine Kinase CK-MB (CK-2) CK and CKMB Interp Troponin I Total Protein Albumin Globulin Albumin/Globulin Ratio Urine Color Urine Appearance Urine pH Ur Specific [place] Urine Protein Urine Glucose (UA) Urine Ketones Urine Blood Urine Nitrate Urine Bilirubin Urine Urobilinogen Urine Leukocytes Urine RBC Urine WBC Ur Squamous Epith Cells Urine Mucus Ur Culture Indicated? Blood Type Antibody Screen Crossmatch 04/09/17 04/09/17 04/10/17 19:30 19:30 03:45 WBC RBC Hgb Hct MCV MCH MCHC RDW Plt Count MPV Neut % (Auto) Lymph % (Auto) [place] % (Auto) Eos % (Auto) Baso % (Auto) Neut # (Auto) Lymph # (Auto) [place] # (Auto) Eos # (Auto) Baso # (Auto) Immature Gran % Nucleated RBC % Immature Gran # Nucleated RBCs # Platelet Estimate Giant Platelets Immature Plt Fraction Hypochromasia Microcytosis INR PT Patient/Control Mix Circ Anticoag PTT Patient Temperature ABG pH 7.351 ABG pH at Pt Temp ABG pCO2 42.1 ABG pCO2 at Pt Temp ABG pO2 121.0 H ABG pO2 at Pt Temp ABG HCO3 22.5 ABG Total CO2 21.3 L ABG O2 Saturation 98.4 ABG Base Excess -2.2 ABG Sodium VBG pH VBG pCO2 VBG pO2 VBG HCO3 VBG Total CO2 VBG O2 Saturation VBG Base Excess Hemoglobin 9.9 L Hematocrit 30.6 L Potassium 4.4 Glucose 178 H Ionized Calcium FiO2 Sodium Chloride Carbon Dioxide Anion Gap BUN Creatinine GFR Calculation BUN/Creatinine Ratio Calculated Osmolality Calcium Venous Ioniz Calcium Magnesium Total Bilirubin Direct Bilirubin AST ALT Alkaline Phosphatase Total Creatine Kinase 472 H D 405 H CK-MB (CK-2) 38.7 H D 32.3 H D CK and CKMB Interp 8.2 8.0 Troponin I 15.200 H 10.600 H D Total Protein Albumin Globulin Albumin/Globulin Ratio Urine Color Urine Appearance Urine pH Ur Specific [place] Urine Protein Urine Glucose (UA) Urine Ketones Urine Blood Urine Nitrate Urine Bilirubin Urine Urobilinogen Urine Leukocytes Urine RBC Urine WBC Ur Squamous Epith Cells Urine Mucus Ur Culture Indicated? Blood Type Antibody Screen Crossmatch 04/10/17 04/10/17 04/10/17 03:45 03:45 03:45 WBC 18.0 H RBC 2.90 L Hgb 8.8 L Hct 26.2 L MCV 90.3 MCH 30 MCHC 33.6 RDW 14.4 Plt Count 177 D MPV 11.6 Neut % (Auto) 86.4 H Lymph % (Auto) 5.4 L [place] % (Auto) 7.7 Eos % (Auto) 0.0 Baso % (Auto) 0.1 Neut # (Auto) 15.6 H Lymph # (Auto) 1.0 L [place] # (Auto) 1.4 H Eos # (Auto) 0.0 Baso # (Auto) 0.0 Immature Gran % 0.4 Nucleated RBC % 0.0 Immature Gran # 0.08 Nucleated RBCs # 0.00 Platelet Estimate Giant Platelets Immature Plt Fraction 0.0 Hypochromasia Microcytosis INR PT Patient/Control Mix Circ Anticoag PTT Patient Temperature ABG pH 7.364 ABG pH at Pt Temp ABG pCO2 39.4 ABG pCO2 at Pt Temp ABG pO2 121.0 H ABG pO2 at Pt Temp ABG HCO3 22.2 ABG Total CO2 20.9 L ABG O2 Saturation 98.6 ABG Base Excess -2.6 L ABG Sodium VBG pH VBG pCO2 VBG pO2 VBG HCO3 VBG Total CO2 VBG O2 Saturation VBG Base Excess Hemoglobin 8.7 L Hematocrit 27.0 L Potassium 4.7 4.7 Glucose 127 H 134 H Ionized Calcium FiO2 Sodium 141 Chloride 108 H Carbon Dioxide 26 Anion Gap 11.7 BUN 29 H Creatinine 1.40 H GFR Calculation 65 BUN/Creatinine Ratio 20.00 Calculated Osmolality 288.3 Calcium 7.7 L Venous Ioniz Calcium Magnesium 2.0 Total Bilirubin 0.70 Direct Bilirubin 0.190 AST 52 H ALT 27 Alkaline Phosphatase 54 Total Creatine Kinase CK-MB (CK-2) CK and CKMB Interp Troponin I Total Protein 5.3 L Albumin 3.3 L Globulin 2.0 L Albumin/Globulin Ratio 1.6 Urine Color Urine Appearance Urine pH Ur Specific [place] Urine Protein Urine Glucose (UA) Urine Ketones Urine Blood Urine Nitrate Urine Bilirubin Urine Urobilinogen Urine Leukocytes Urine RBC Urine WBC Ur Squamous Epith Cells Urine Mucus Ur Culture Indicated? Blood Type Antibody Screen Crossmatch Quality Measures - VTE Contraindication to Pharmacological VTE Prophylaxis: High Risk of Bleeding
[2017-04-10] MEDS ORDERED: AZITHROMYCIN 250 MG TABLET PO SCH (07:00)
[2017-04-10] MEDS ORDERED: MAGNESIUM SULF RIDER 4 GM in PREMIX 1 EACH IV PRN (07:35)
[2017-04-10] MEDS ORDERED: ZALEPLON 5 MG CAPSULE PO PRN (07:35)
[2017-04-10] MEDS ORDERED: GLUCAGON 1 MG VIAL IM PRN ×2 (07:35)
[2017-04-10] MEDS ORDERED: ALUMINUM/MAGNES/SIMETH MAX STR 30 ML UDCUP PO PRN (07:35)
[2017-04-10] MEDS ORDERED: MORPHINE 2 MG/1 ML SYRINGE IV PRN (07:35)
[2017-04-10] MEDS ORDERED: MAGNESIUM SULF RIDER 2 GM in PREMIX 1 EACH IV PRN (07:35)
[2017-04-10] MEDS ORDERED: DEXTROSE 50% 25 GM/50 ML VIAL IV PRN (07:35)
[2017-04-10] MEDS ORDERED: ACETAMINOPHEN 325 MG TABLET PO PRN (07:35)
[2017-04-10] MEDS ORDERED: DEXTROSE 50% 25 GM/50 ML SYRINGE IV PRN (07:35)
[2017-04-10] MEDS ORDERED: MAGNESIUM HYDROXIDE SUSP 30 ML UDCUP PO PRN (07:35)
[2017-04-10] MEDS ORDERED: ONDANSETRON 4 MG/2 ML VIAL IV PRN (07:35)
[2017-04-10] MEDS ORDERED: POTASSIUM CHLORIDE 20 MEQ TABLET PO PRN (07:35)
[2017-04-10] MEDS: SODIUM CHLOR 0.45% KCL 20 MEQ 20 MEQ/1,000 ML BAG IV SCH (07:58)
[2017-04-10] MEDS: ASPIRIN 325 MG TABLET PO SCH (08:31)
[2017-04-10] MEDS: ATORVASTATIN 10 MG TABLET PO SCH ×2 (08:31→20:53)
[2017-04-10] MEDS: PANTOPRAZOLE 40 MG TABLET PO SCH ×2 (08:31→20:53)
[2017-04-10] MEDS: FERROUS SULFATE 325 MG TABLET PO SCH (08:31)
[2017-04-10] MEDS: DOCUSATE SODIUM 100 MG CAPSULE PO SCH (08:31)
[2017-04-10] MEDS: predniSONE 20 MG TABLET PO SCH (08:31)
[2017-04-10] MEDS: ASPIRIN EC 325 MG TABLET PO SCH (08:35)
[2017-04-10] MEDS ORDERED: PANTOPRAZOLE 40 MG TABLET PO SCH ×2 (09:00)
[2017-04-10] MEDS ORDERED: CARVEDILOL 12.5 MG TABLET PO SCH (09:00)
[2017-04-10] MEDS ORDERED: LISINOPRIL 5 MG TABLET PO SCH (09:00)
--- NOTE | 2017-04-10 09:14 | XRay Report ---
Portable chest Exam date: 04/10/2017 4:00 AM Indication: Shortness of breath, cough Comparison: Previous day at 1210 hours Findings: Cardiomediastinal contours are stable. Interval extubation and removal of the mediastinal and pleural drains. Right [place]-Heydi catheter and central venous line are unchanged. Increasing central interstitial prominence and pulmonary vasculature with increasing pleural and parenchymal opacities obscuring the left hemidiaphragm. No acute osseous abnormalities. Visualized upper abdomen demonstrates no acute pathology. Impression: 1. Interval extubation with removal of the mediastinal and pleural drains 2. Developing pulmonary vasculature congestion with increasing left basilar pleural effusion PROCEDURE INTERPRETED AT [facility] DEPARTMENT OF RADIOLOGY Final Report Signed by: Mirza Pastrana
[2017-04-10] MEDS: CHLORHEXIDINE 0.12% ORAL RINSE 60 ML BOTTLE SWISH/SPIT SCH ×2 (10:19→20:53)
[2017-04-10] MEDS: CLORAZEPATE 3.75 MG TABLET PO SCH ×4 (10:19→20:59)
[2017-04-10] MEDS: VANCOMYCIN INJ 1,000 MG in SODIUM CHLORIDE 0.9% 250 ML IV SCH (10:59)
[2017-04-10] MEDS: oxyCODONE/ACETAMINOPHEN 5-325 MG TABLET PO PRN ×2 (17:38→18:41)
[2017-04-11] MEDS: KETOROLAC 30 MG/1 ML VIAL IV SCH ×4 (00:56→20:11)
[2017-04-11] MEDS: VANCOMYCIN INJ 1,000 MG in SODIUM CHLORIDE 0.9% 250 ML IV SCH ×2 (01:41→15:18)
[2017-04-11 04:11] LABS: Basophils % 0.1 % (0.0-0.8); Eosinophils % 0.1 % (0.00-10.9); Hematocrit 23.8 VOL% (42.0-52.0); Hemoglobin 7.8 GM/DL (14.0-18.0); Immature Granulocytes % 0.6 %; Lymphocytes # 2.1 10*3/uL (1.4-4.0); Lymphocytes % 12.9 % (21.2-54.2); Mean Corpuscular HGB Conc 32.8 GM/DL (32-36); Mean Corpuscular Hemoglobin 30 PG (27-34); Mean Corpuscular Volume 91.5 FL (87-102); Mean Platelet Volume 11.8 FL (9.6-12.0); Monocytes # 1.6 10*3/uL (0.11-0.8); Monocytes % 10.2 % (1.7-12.7); Neutrophils # 12.2 10*3/uL (1.4-7.4); Neutrophils % 76.1 % (38.7-73.9); Platelet Count 161 T/CUMM (130-400); Red Cell Distribution Width 14.3 % (9.3-17.3)
[2017-04-11 04:48] LABS: Albumin 2.9 G/DL (3.4-5.0); Bilirubin,Direct 0.11 MG/DL (0.0-0.20); Bilirubin,Indirect 1.6 MG/DL (0.0-1.0); Bilirubin,Total 1.7 MG/DL (0.2-1.0); CKMB % 4.4 %; Calcium 7.8 MG/DL (8.5-10.1); Magnesium 2.3 MG/DL (1.8-2.4); Osmolality,Calculated 285.4 MOS/KG (273-304); Potassium 4.4 MMOL/L (3.5-5.1)
[2017-04-11 04:50] LABS: Troponin I Only 4.76 NG/ML (0.00-0.045)
[2017-04-11] MEDS ORDERED: SODIUM CHLORIDE 0.9% 250 ML IV PRN (05:44)
[2017-04-11] MEDS ORDERED: FUROSEMIDE 40 MG/4 ML VIAL IV ONE (06:00)
--- NOTE | 2017-04-11 06:30 | Cardiothoracic Progress Note ---
Cardiothoracic Subjective Interval history: Patient looks and feels okay. He is having some oozing from his right leg incision but we will try to control this with an Klever wrap. His hematocrit is 23 and I think we will give him 2 units of packed red blood cells today. Vital signs have been stable and he is breathing comfortably and actually looks fairly good. We will try to increase his activities as tolerated today and overall his progress appears satisfactory. Exam (Progress Note) - Constitutional Vitals: Period Temp Pulse Resp BP Sys/Mann Pulse Ox Last 24 Hr 96.5 F-99.1 F 74-87 15-25 98-130/51-71 95-100 Result/EKG - Labs CBC & BMP: 04/11/17 03:40 04/11/17 03:40 Labs: Laboratory Results - last 24 hr 04/08/17 04/09/17 04/09/17 10:53 16:11 22:15 WBC RBC Hgb Hct MCV MCH MCHC RDW Plt Count MPV Neut % (Auto) Lymph % (Auto) [place] % (Auto) Eos % (Auto) Baso % (Auto) Neut # (Auto) Lymph # (Auto) [place] # (Auto) Eos # (Auto) Baso # (Auto) Immature Gran % Nucleated RBC % Immature Gran # Nucleated RBCs # Immature Plt Fraction Sodium Potassium Chloride Carbon Dioxide Anion Gap BUN Creatinine GFR Calculation BUN/Creatinine Ratio Glucose POC Glucose 163 H 142 H Calculated Osmolality Calcium Magnesium Total Bilirubin Direct Bilirubin Indirect Bilirubin AST ALT Alkaline Phosphatase Total Creatine Kinase CK-MB (CK-2) CK and CKMB Interp Troponin I Total Protein Albumin Globulin Albumin/Globulin Ratio Crossmatch See Detail 04/10/17 04/10/17 04/10/17 01:49 05:48 07:53 WBC RBC Hgb Hct MCV MCH MCHC RDW Plt Count MPV Neut % (Auto) Lymph % (Auto) [place] % (Auto) Eos % (Auto) Baso % (Auto) Neut # (Auto) Lymph # (Auto) [place] # (Auto) Eos # (Auto) Baso # (Auto) Immature Gran % Nucleated RBC % Immature Gran # Nucleated RBCs # Immature Plt Fraction Sodium Potassium Chloride Carbon Dioxide Anion Gap BUN Creatinine GFR Calculation BUN/Creatinine Ratio Glucose POC Glucose 141 H 158 H 126 H Calculated Osmolality Calcium Magnesium Total Bilirubin Direct Bilirubin Indirect Bilirubin AST ALT Alkaline Phosphatase Total Creatine Kinase CK-MB (CK-2) CK and CKMB Interp Troponin I Total Protein Albumin Globulin Albumin/Globulin Ratio Crossmatch 04/10/17 04/10/17 04/10/17 11:39 15:14 19:11 WBC RBC Hgb Hct MCV MCH MCHC RDW Plt Count MPV Neut % (Auto) Lymph % (Auto) [place] % (Auto) Eos % (Auto) Baso % (Auto) Neut # (Auto) Lymph # (Auto) [place] # (Auto) Eos # (Auto) Baso # (Auto) Immature Gran % Nucleated RBC % Immature Gran # Nucleated RBCs # Immature Plt Fraction Sodium Potassium Chloride Carbon Dioxide Anion Gap BUN Creatinine GFR Calculation BUN/Creatinine Ratio Glucose POC Glucose 156 H 141 H 158 H Calculated Osmolality Calcium Magnesium Total Bilirubin Direct Bilirubin Indirect Bilirubin AST ALT Alkaline Phosphatase Total Creatine Kinase CK-MB (CK-2) CK and CKMB Interp Troponin I Total Protein Albumin Globulin Albumin/Globulin Ratio Crossmatch 04/11/17 04/11/17 04/11/17 00:58 03:40 03:40 WBC 16.0 H RBC 2.60 L Hgb 7.8 L Hct 23.8 L MCV 91.5 MCH 30 MCHC 32.8 RDW 14.3 Plt Count 161 MPV 11.8 Neut % (Auto) 76.1 H Lymph % (Auto) 12.9 L [place] % (Auto) 10.2 Eos % (Auto) 0.1 Baso % (Auto) 0.1 Neut # (Auto) 12.2 H Lymph # (Auto) 2.1 [place] # (Auto) 1.6 H Eos # (Auto) 0.0 Baso # (Auto) 0.0 Immature Gran % 0.6 Nucleated RBC % 0.0 Immature Gran # 0.10 Nucleated RBCs # 0.00 Immature Plt Fraction 0.0 Sodium 140 Potassium 4.4 Chloride 106 Carbon Dioxide 29 Anion Gap 9.4 BUN 30 H Creatinine 1.20 GFR Calculation 81 BUN/Creatinine Ratio 25.00 H Glucose 109 H POC Glucose 132 H Calculated Osmolality 285.4 Calcium 7.8 L Magnesium 2.3 Total Bilirubin 1.70 H Direct Bilirubin 0.110 Indirect Bilirubin 1.6 H AST 27 ALT 22 Alkaline Phosphatase 52 Total Creatine Kinase 177 D CK-MB (CK-2) 7.7 H D CK and CKMB Interp 4.4 Troponin I 4.760 H D Total Protein 5.0 L Albumin 2.9 L Globulin 2.1 L Albumin/Globulin Ratio 1.3 Crossmatch 04/11/17 04:52 WBC RBC Hgb Hct MCV MCH MCHC RDW Plt Count MPV Neut % (Auto) Lymph % (Auto) [place] % (Auto) Eos % (Auto) Baso % (Auto) Neut # (Auto) Lymph # (Auto) [place] # (Auto) Eos # (Auto) Baso # (Auto) Immature Gran % Nucleated RBC % Immature Gran # Nucleated RBCs # Immature Plt Fraction Sodium Potassium Chloride Carbon Dioxide Anion Gap BUN Creatinine GFR Calculation BUN/Creatinine Ratio Glucose POC Glucose 114 H Calculated Osmolality Calcium Magnesium Total Bilirubin Direct Bilirubin Indirect Bilirubin AST ALT Alkaline Phosphatase Total Creatine Kinase CK-MB (CK-2) CK and CKMB Interp Troponin I Total Protein Albumin Globulin Albumin/Globulin Ratio Crossmatch Quality Measures - VTE Contraindication to Pharmacological VTE Prophylaxis: High Risk of Bleeding Specialty Discharge - Follow Up or Referrals
--- NOTE | 2017-04-11 07:57 | XRay Report ---
Portable chest Exam date: 04/11/2017 4:00 AM Indication: Shortness of breath, cough Comparison: Previous day at 0557 hours Findings: Cardiomediastinal contours are stable. Interval removal [place]-Heydi catheter. Persistent bibasilar atelectasis and left pleural effusion, unchanged. No acute osseous abnormalities. Visualized upper abdomen demonstrates no acute pathology. Impression: Removal of the [place]-Heydi catheter, otherwise examination is unchanged since interval study PROCEDURE INTERPRETED AT [facility] DEPARTMENT OF RADIOLOGY Final Report Signed by: Mirza Pastrana
[2017-04-11] MEDS: FERROUS SULFATE 325 MG TABLET PO SCH (08:51)
[2017-04-11] MEDS: ATORVASTATIN 10 MG TABLET PO SCH ×2 (08:51→22:47)
[2017-04-11] MEDS: DOCUSATE SODIUM 100 MG CAPSULE PO SCH (08:51)
[2017-04-11] MEDS: PANTOPRAZOLE 40 MG TABLET PO SCH ×2 (08:51→22:47)
[2017-04-11] MEDS: predniSONE 20 MG TABLET PO SCH (08:51)
[2017-04-11] MEDS: CLORAZEPATE 3.75 MG TABLET PO SCH ×5 (08:51→22:48)
[2017-04-11] MEDS: ASPIRIN 325 MG TABLET PO SCH (08:51)
[2017-04-11] MEDS ORDERED: LISINOPRIL 5 MG TABLET PO SCH (09:00)
[2017-04-11] MEDS ORDERED: CARVEDILOL 12.5 MG TABLET PO SCH (09:00)
[2017-04-11] MEDS: ASPIRIN EC 325 MG TABLET PO SCH (09:40)
[2017-04-11] MEDS: SODIUM CHLOR 0.45% KCL 20 MEQ 20 MEQ/1,000 ML BAG IV SCH (09:40)
[2017-04-11] MEDS: CHLORHEXIDINE 0.12% ORAL RINSE 60 ML BOTTLE SWISH/SPIT SCH ×2 (09:41→22:47)
[2017-04-11 17:08] LABS: Hematocrit 29.7 VOL% (42.0-52.0)
[2017-04-11] MEDS: MUPIROCIN 2% OINT 22 GM TUBE TOP SCH (22:47)
[2017-04-12] MEDS: KETOROLAC 30 MG/1 ML VIAL IV SCH ×4 (01:37→21:34)
[2017-04-12 06:04] LABS: Basophils % 0.1 % (0.0-0.8); Eosinophils # 0.1 10*3/uL (0.0-0.87); Eosinophils % 0.8 % (0.00-10.9); Hematocrit 26.9 VOL% (42.0-52.0); Hemoglobin 9.1 GM/DL (14.0-18.0); Immature Granulocytes % 0.9 %; Immature Granulocytes Absolute 0.13 #; Lymphocytes # 2.9 10*3/uL (1.4-4.0); Mean Corpuscular HGB Conc 33.8 GM/DL (32-36); Mean Corpuscular Hemoglobin 31 PG (27-34); Mean Corpuscular Volume 91.2 FL (87-102); Mean Platelet Volume 11.7 FL (9.6-12.0); Monocytes # 1.4 10*3/uL (0.11-0.8); Monocytes % 10.2 % (1.7-12.7); Neutrophils # 9.4 10*3/uL (1.4-7.4); Platelet Count 162 T/CUMM (130-400); Red Blood Count 2.95 MC/CUMM (3.8-5.5)
[2017-04-12 06:36] LABS: Alanine Aminotransferase 21 U/L (16-61); Albumin 2.7 G/DL (3.4-5.0); Alkaline Phosphatase 56 U/L (45-117); Aspartate Amino Transferase 19 U/L (0-37); Bilirubin,Indirect 1.7 MG/DL (0.0-1.0); Blood Urea Nitrogen 25 MG/DL (7-18); Calcium 7.8 MG/DL (8.5-10.1); Glucose 77 MG/DL (74-106); Magnesium 2.3 MG/DL (1.8-2.4); Osmolality,Calculated 283.3 MOS/KG (273-304); Sodium 141 MMOL/L (136-145); Total Protein 4.9 G/DL (6.4-8.3)
--- NOTE | 2017-04-12 08:40 | Cardiothoracic Progress Note ---
Cardiothoracic Subjective Interval history: Patient looks and feels okay. He still had some oozing from his left leg incision but this appears to be slowing considerably. Otherwise his vital signs are stable and he is feeling fairly well. We will try to increase his activity according to routine post operative protocol. Exam (Progress Note) - Constitutional Vitals: Period Temp Pulse Resp BP Sys/Mann Pulse Ox Last 24 Hr 97.7 F-98.5 F 50-95 16-20 99-128/57-80 93-100 Result/EKG - Labs CBC & BMP: 04/12/17 05:54 04/12/17 05:54 Labs: Laboratory Results - last 24 hr 04/08/17 04/11/17 04/11/17 10:53 03:40 11:56 WBC RBC Hgb Hct MCV MCH MCHC RDW Plt Count MPV Neut % (Auto) Lymph % (Auto) [place] % (Auto) Eos % (Auto) Baso % (Auto) Neut # (Auto) Lymph # (Auto) [place] # (Auto) Eos # (Auto) Baso # (Auto) Immature Gran % Nucleated RBC % Immature Gran # Nucleated RBCs # Immature Plt Fraction Sodium Potassium Chloride Carbon Dioxide Anion Gap BUN Creatinine GFR Calculation BUN/Creatinine Ratio Glucose POC Glucose 125 H Calculated Osmolality Calcium Magnesium Total Bilirubin Direct Bilirubin Indirect Bilirubin AST ALT Alkaline Phosphatase Total Creatine Kinase CK-MB (CK-2) Troponin I Total Protein Albumin Globulin Albumin/Globulin Ratio Blood Type A NEGATIVE Antibody Screen Negative Crossmatch See Detail See Detail 04/11/17 04/11/17 04/11/17 15:08 17:00 21:14 WBC RBC Hgb 10.0 L D Hct 29.7 L MCV MCH MCHC RDW Plt Count MPV Neut % (Auto) Lymph % (Auto) [place] % (Auto) Eos % (Auto) Baso % (Auto) Neut # (Auto) Lymph # (Auto) [place] # (Auto) Eos # (Auto) Baso # (Auto) Immature Gran % Nucleated RBC % Immature Gran # Nucleated RBCs # Immature Plt Fraction Sodium Potassium Chloride Carbon Dioxide Anion Gap BUN Creatinine GFR Calculation BUN/Creatinine Ratio Glucose POC Glucose 216 H 114 H Calculated Osmolality Calcium Magnesium Total Bilirubin Direct Bilirubin Indirect Bilirubin AST ALT Alkaline Phosphatase Total Creatine Kinase CK-MB (CK-2) Troponin I Total Protein Albumin Globulin Albumin/Globulin Ratio Blood Type Antibody Screen Crossmatch 04/12/17 04/12/17 04/12/17 01:01 04:25 05:54 WBC 14.0 H RBC 2.95 L Hgb 9.1 L Hct 26.9 L MCV 91.2 MCH 31 MCHC 33.8 RDW 14.0 Plt Count 162 MPV 11.7 Neut % (Auto) 67.0 Lymph % (Auto) 21.0 L [place] % (Auto) 10.2 Eos % (Auto) 0.8 Baso % (Auto) 0.1 Neut # (Auto) 9.4 H Lymph # (Auto) 2.9 [place] # (Auto) 1.4 H Eos # (Auto) 0.1 Baso # (Auto) 0.0 Immature Gran % 0.9 Nucleated RBC % 0.0 Immature Gran # 0.13 Nucleated RBCs # 0.00 Immature Plt Fraction 0.0 Sodium Potassium Chloride Carbon Dioxide Anion Gap BUN Creatinine GFR Calculation BUN/Creatinine Ratio Glucose POC Glucose 118 H 100 Calculated Osmolality Calcium Magnesium Total Bilirubin Direct Bilirubin Indirect Bilirubin AST ALT Alkaline Phosphatase Total Creatine Kinase CK-MB (CK-2) Troponin I Total Protein Albumin Globulin Albumin/Globulin Ratio Blood Type Antibody Screen Crossmatch 04/12/17 05:54 WBC RBC Hgb Hct MCV MCH MCHC RDW Plt Count MPV Neut % (Auto) Lymph % (Auto) [place] % (Auto) Eos % (Auto) Baso % (Auto) Neut # (Auto) Lymph # (Auto) [place] # (Auto) Eos # (Auto) Baso # (Auto) Immature Gran % Nucleated RBC % Immature Gran # Nucleated RBCs # Immature Plt Fraction Sodium 141 Potassium 4.0 Chloride 105 Carbon Dioxide 30 Anion Gap 10.0 BUN 25 H Creatinine 1.00 GFR Calculation 101 BUN/Creatinine Ratio 25.00 H Glucose 77 POC Glucose Calculated Osmolality 283.3 Calcium 7.8 L Magnesium 2.3 Total Bilirubin 1.90 H Direct Bilirubin 0.200 Indirect Bilirubin 1.7 H AST 19 ALT 21 Alkaline Phosphatase 56 Total Creatine Kinase 101 D CK-MB (CK-2) 2.3 D Troponin I 3.880 H Total Protein 4.9 L Albumin 2.7 L Globulin 2.2 L Albumin/Globulin Ratio 1.2 Blood Type Antibody Screen Crossmatch Quality Measures - VTE Contraindication to Pharmacological VTE Prophylaxis: High Risk of Bleeding Specialty Discharge - Follow Up or Referrals
[2017-04-12] MEDS: ATORVASTATIN 10 MG TABLET PO SCH ×2 (09:03→21:35)
[2017-04-12] MEDS: FERROUS SULFATE 325 MG TABLET PO SCH (09:03)
[2017-04-12] MEDS: DOCUSATE SODIUM 100 MG CAPSULE PO SCH (09:03)
[2017-04-12] MEDS: ASPIRIN 325 MG TABLET PO SCH (09:03)
[2017-04-12] MEDS: predniSONE 20 MG TABLET PO SCH (09:03)
[2017-04-12] MEDS: MUPIROCIN 2% OINT 22 GM TUBE TOP SCH ×2 (09:04→21:35)
[2017-04-12] MEDS: ASPIRIN EC 325 MG TABLET PO SCH (09:04)
[2017-04-12] MEDS: PANTOPRAZOLE 40 MG TABLET PO SCH ×2 (09:04→21:35)
[2017-04-12] MEDS: CLORAZEPATE 3.75 MG TABLET PO SCH ×4 (09:06→21:35)
[2017-04-12] MEDS: CHLORHEXIDINE 0.12% ORAL RINSE 60 ML BOTTLE SWISH/SPIT SCH ×2 (09:06→21:35)
--- NOTE | 2017-04-12 09:44 | XRay Report ---
XR chest 1V portable Indication: Shortness of breath Comparison: 11 April 2017 Findings: The heart and mediastinum are stable in size and configuration. Right internal jugular catheter is unchanged in position. The pulmonary vascularity is slightly increased with bilateral increased interstitial lung density. No other lung infiltrates, effusions, pneumothorax or other abnormality is demonstrated. Impression: Findings suggest mild cardiac decompensation. PROCEDURE INTERPRETED AT [facility] DEPARTMENT OF RADIOLOGY Final Report Signed by: Dr. Cisco Mantilla
[2017-04-12] MEDS: oxyCODONE/ACETAMINOPHEN 5-325 MG TABLET PO PRN (17:15)
[2017-04-13] MEDS: KETOROLAC 30 MG/1 ML VIAL IV SCH (04:29)
--- NOTE | 2017-04-13 08:56 | Cardiothoracic Progress Note ---
Cardiothoracic Subjective Interval history: Patient looks and feels fine. He has been ambulating without assistance. Vital signs are stable and is breathing comfortably. His wounds look okay. Continue to increase his activities as tolerated but overall his progress appears satisfactory Exam (Progress Note) - Constitutional Vitals: Period Temp Pulse Resp BP Sys/Mann Pulse Ox Last 24 Hr 97.7 F-98.7 F 80-94 16-18 105-133/64-77 92-97 Result/EKG - Labs CBC & BMP: 04/12/17 05:54 04/12/17 05:54 Labs: Laboratory Results - last 24 hr 04/12/17 04/12/17 04/12/17 11:14 15:33 19:38 POC Glucose 115 H 153 H 211 H 04/13/17 07:07 POC Glucose 91 Quality Measures - VTE Contraindication to Pharmacological VTE Prophylaxis: High Risk of Bleeding Specialty Discharge - Follow Up or Referrals
[2017-04-13] MEDS: ASPIRIN 325 MG TABLET PO SCH (08:57)
[2017-04-13] MEDS: PANTOPRAZOLE 40 MG TABLET PO SCH ×2 (08:57→21:19)
[2017-04-13] MEDS: FERROUS SULFATE 325 MG TABLET PO SCH (08:57)
[2017-04-13] MEDS: DOCUSATE SODIUM 100 MG CAPSULE PO SCH (08:57)
[2017-04-13] MEDS: ATORVASTATIN 10 MG TABLET PO SCH ×2 (08:57→21:19)
[2017-04-13] MEDS: predniSONE 20 MG TABLET PO SCH (08:58)
[2017-04-13] MEDS: MUPIROCIN 2% OINT 22 GM TUBE TOP SCH ×2 (08:59→22:25)
[2017-04-13] MEDS: CHLORHEXIDINE 0.12% ORAL RINSE 60 ML BOTTLE SWISH/SPIT SCH ×2 (08:59→22:25)
[2017-04-13] MEDS: ASPIRIN EC 325 MG TABLET PO SCH (09:12)
[2017-04-13] MEDS: CLORAZEPATE 3.75 MG TABLET PO SCH ×3 (09:12→21:21)
[2017-04-13] MEDS: oxyCODONE/ACETAMINOPHEN 5-325 MG TABLET PO PRN (19:05)
[2017-04-14 04:58] LABS: Basophils % 0.3 % (0.0-0.8); Eosinophils # 0.3 10*3/uL (0.0-0.87); Eosinophils % 2.2 % (0.00-10.9); Hematocrit 27.7 VOL% (42.0-52.0); Hemoglobin 9.5 GM/DL (14.0-18.0); Immature Granulocytes Absolute 0.14 #; Lymphocytes # 2.8 10*3/uL (1.4-4.0); Lymphocytes % 21.2 % (21.2-54.2); Mean Corpuscular HGB Conc 34.3 GM/DL (32-36); Mean Corpuscular Hemoglobin 30 PG (27-34); Mean Corpuscular Volume 88.8 FL (87-102); Monocytes # 1.3 10*3/uL (0.11-0.8); Monocytes % 9.6 % (1.7-12.7); NRBC # 0.02 10*3/uL; Neutrophils # 8.8 10*3/uL (1.4-7.4); Neutrophils % 65.7 % (38.7-73.9); Platelet Count 268 T/CUMM (130-400); Red Blood Count 3.12 MC/CUMM (3.8-5.5); Red Cell Distribution Width 13.5 % (9.3-17.3); White Blood Count 13.3 T/CUMM (4-12)
[2017-04-14 05:32] LABS: Alanine Aminotransferase 25 U/L (16-61); Alkaline Phosphatase 68 U/L (45-117); Aspartate Amino Transferase 13 U/L (0-37); Bilirubin,Indirect 0.7 MG/DL (0.0-1.0); Blood Urea Nitrogen 17 MG/DL (7-18); Calcium 8.6 MG/DL (8.5-10.1); Glucose 80 MG/DL (74-106); Magnesium 2.1 MG/DL (1.8-2.4); Osmolality,Calculated 279.4 MOS/KG (273-304); Potassium 3.9 MMOL/L (3.5-5.1); Sodium 140 MMOL/L (136-145); Total Protein 5.6 G/DL (6.4-8.3)
[2017-04-14] MEDS: oxyCODONE/ACETAMINOPHEN 5-325 MG TABLET PO PRN ×2 (06:14→21:24)
[2017-04-14] MEDS: ASPIRIN 325 MG TABLET PO SCH (08:49)
[2017-04-14] MEDS: FERROUS SULFATE 325 MG TABLET PO SCH (08:49)
[2017-04-14] MEDS: DOCUSATE SODIUM 100 MG CAPSULE PO SCH (08:49)
[2017-04-14] MEDS: predniSONE 20 MG TABLET PO SCH (08:50)
[2017-04-14] MEDS: PANTOPRAZOLE 40 MG TABLET PO SCH ×2 (08:50→21:24)
[2017-04-14] MEDS: ATORVASTATIN 10 MG TABLET PO SCH ×2 (08:50→21:24)
--- NOTE | 2017-04-14 08:55 | Cardiothoracic Progress Note ---
Cardiothoracic Subjective Interval history: Patient looks and feels better. He is walking unassisted at this point. Vital signs have been stable and is breathing comfortably. He still has some resting tachycardia and I am going to restart his Coreg. Overall his progress is satisfactory. Exam (Progress Note) - Constitutional Vitals: Period Temp Pulse Resp BP Sys/Mann Pulse Ox Last 24 Hr 98.0 F-99.4 F 74-103 18-20 117-139/64-81 92-97 Result/EKG - Labs CBC & BMP: 04/14/17 04:23 04/14/17 04:23 Labs: Laboratory Results - last 24 hr 04/13/17 04/13/17 04/13/17 11:22 15:40 20:18 WBC RBC Hgb Hct MCV MCH MCHC RDW Plt Count MPV Neut % (Auto) Lymph % (Auto) Heard % (Auto) Eos % (Auto) Baso % (Auto) Neut # (Auto) Lymph # (Auto) Heard # (Auto) Eos # (Auto) Baso # (Auto) Immature Gran % Nucleated RBC % Immature Gran # Nucleated RBCs # Immature Plt Fraction Sodium Potassium Chloride Carbon Dioxide Anion Gap BUN Creatinine GFR Calculation BUN/Creatinine Ratio Glucose POC Glucose 100 125 H 133 H Calculated Osmolality Calcium Magnesium Total Bilirubin Direct Bilirubin Indirect Bilirubin AST ALT Alkaline Phosphatase Total Creatine Kinase CK-MB (CK-2) Troponin I Total Protein Albumin Globulin Albumin/Globulin Ratio 04/14/17 04/14/17 04:23 04:23 WBC 13.3 H RBC 3.12 L Hgb 9.5 L Hct 27.7 L MCV 88.8 MCH 30 MCHC 34.3 RDW 13.5 Plt Count 268 D MPV 11.0 Neut % (Auto) 65.7 Lymph % (Auto) 21.2 Heard % (Auto) 9.6 Eos % (Auto) 2.2 Baso % (Auto) 0.3 Neut # (Auto) 8.8 H Lymph # (Auto) 2.8 Heard # (Auto) 1.3 H Eos # (Auto) 0.3 Baso # (Auto) 0.0 Immature Gran % 1.0 Nucleated RBC % 0.1 Immature Gran # 0.14 Nucleated RBCs # 0.02 Immature Plt Fraction 0.0 Sodium 140 Potassium 3.9 Chloride 103 Carbon Dioxide 29 Anion Gap 11.9 BUN 17 Creatinine 1.10 GFR Calculation 90 BUN/Creatinine Ratio 15.00 Glucose 80 POC Glucose Calculated Osmolality 279.4 Calcium 8.6 Magnesium 2.1 Total Bilirubin 0.90 Direct Bilirubin 0.180 Indirect Bilirubin 0.7 AST 13 ALT 25 Alkaline Phosphatase 68 Total Creatine Kinase 70 D CK-MB (CK-2) 1.1 Troponin I 1.940 H D Total Protein 5.6 L Albumin 3.0 L Globulin 2.6 Albumin/Globulin Ratio 1.1 Quality Measures - VTE Contraindication to Pharmacological VTE Prophylaxis: High Risk of Bleeding Specialty Discharge - Follow Up or Referrals
--- NOTE | 2017-04-14 10:21 | XRay Report ---
History is short of breath Chest, 2 views Comparison 04/12/2017 The heart is enlarged with improvement of prior vascular congestion and diffuse edema. Minimal interstitial opacities and small bilateral pleural effusions remain with mildly more focal consolidation and air bronchograms in the left base partially obscuring the left diaphragm Impression: 1. Interval improvement with minimal residual interstitial edema and mildly more joint infiltrate or atelectasis in the left lung base PROCEDURE INTERPRETED AT [facility] DEPARTMENT OF RADIOLOGY Final Report Signed by: Dr. Leola Ruggiero
[2017-04-14] MEDS: CARVEDILOL 12.5 MG TABLET PO SCH ×2 (12:24→21:24)
[2017-04-14] MEDS: ASPIRIN EC 325 MG TABLET PO SCH (12:50)
[2017-04-14] MEDS: CHLORHEXIDINE 0.12% ORAL RINSE 60 ML BOTTLE SWISH/SPIT SCH ×2 (12:51→21:25)
[2017-04-14] MEDS: MUPIROCIN 2% OINT 22 GM TUBE TOP SCH ×2 (12:51→21:26)
[2017-04-14] MEDS: CLORAZEPATE 3.75 MG TABLET PO SCH ×3 (12:52→21:27)
[2017-04-15] MEDS: oxyCODONE/ACETAMINOPHEN 5-325 MG TABLET PO PRN ×3 (06:13→21:23)
[2017-04-15 06:17] LABS: Basophils % 0.3 % (0.0-0.8); Eosinophils # 0.3 10*3/uL (0.0-0.87); Eosinophils % 1.9 % (0.00-10.9); Hematocrit 31.2 VOL% (42.0-52.0); Hemoglobin 10.2 GM/DL (14.0-18.0); Immature Granulocytes % 1.5 %; Immature Granulocytes Absolute 0.23 #; Lymphocytes # 3.5 10*3/uL (1.4-4.0); Lymphocytes % 23.5 % (21.2-54.2); Mean Corpuscular HGB Conc 32.7 GM/DL (32-36); Mean Corpuscular Hemoglobin 30 PG (27-34); Mean Corpuscular Volume 91.5 FL (87-102); Mean Platelet Volume 10.8 FL (9.6-12.0); Monocytes # 1.3 10*3/uL (0.11-0.8); Monocytes % 8.7 % (1.7-12.7); Neutrophils # 9.6 10*3/uL (1.4-7.4); Neutrophils % 64.1 % (38.7-73.9); Platelet Count 344 T/CUMM (130-400); Red Blood Count 3.41 MC/CUMM (3.8-5.5); Red Cell Distribution Width 13.7 % (9.3-17.3)
[2017-04-15 06:46] LABS: Alanine Aminotransferase 31 U/L (16-61); Albumin 3.2 G/DL (3.4-5.0); Alkaline Phosphatase 79 U/L (45-117); Aspartate Amino Transferase 16 U/L (0-37); Bilirubin,Indirect 0.9 MG/DL (0.0-1.0); Blood Urea Nitrogen 16 MG/DL (7-18); Glucose 78 MG/DL (74-106); Magnesium 2.1 MG/DL (1.8-2.4); Osmolality,Calculated 276.5 MOS/KG (273-304); Potassium 4.4 MMOL/L (3.5-5.1); Sodium 139 MMOL/L (136-145); Total Protein 6.1 G/DL (6.4-8.3)
[2017-04-15] MEDS ORDERED: predniSONE 10 MG TABLET ONE (07:23)
--- NOTE | 2017-04-15 08:09 | Cardiothoracic Progress Note ---
Cardiothoracic Subjective Interval history: Patient looks and feels okay. Vital signs are stable and is breathing comfortably. His pacing wires have been removed. His chest x-ray does show some effusion and atelectasis in the left lower lobe but otherwise his lung zhang look fairly clear. We will increase his activity as he tolerates it and plan for discharge possibly in the morning. Exam (Progress Note) - Constitutional Vitals: Period Temp Pulse Resp BP Sys/Mann Pulse Ox Last 24 Hr 98.0 F-99.0 F 81-99 16-20 107-141/63-74 91-97 Result/EKG - Labs CBC & BMP: 04/15/17 04:49 04/15/17 04:49 Labs: Laboratory Results - last 24 hr 04/14/17 04/14/17 04/14/17 07:47 11:46 15:41 WBC RBC Hgb Hct MCV MCH MCHC RDW Plt Count MPV Neut % (Auto) Lymph % (Auto) Ness % (Auto) Eos % (Auto) Baso % (Auto) Neut # (Auto) Lymph # (Auto) Ness # (Auto) Eos # (Auto) Baso # (Auto) Immature Gran % Nucleated RBC % Immature Gran # Nucleated RBCs # Immature Plt Fraction Sodium Potassium Chloride Carbon Dioxide Anion Gap BUN Creatinine GFR Calculation BUN/Creatinine Ratio Glucose POC Glucose 86 113 H 159 H Calculated Osmolality Calcium Magnesium Total Bilirubin Direct Bilirubin Indirect Bilirubin AST ALT Alkaline Phosphatase Total Creatine Kinase CK-MB (CK-2) Troponin I Total Protein Albumin Globulin Albumin/Globulin Ratio 04/14/17 04/15/17 04/15/17 19:48 04:49 04:49 WBC 15.0 H RBC 3.41 L Hgb 10.2 L Hct 31.2 L MCV 91.5 MCH 30 MCHC 32.7 RDW 13.7 Plt Count 344 D MPV 10.8 Neut % (Auto) 64.1 Lymph % (Auto) 23.5 Ness % (Auto) 8.7 Eos % (Auto) 1.9 Baso % (Auto) 0.3 Neut # (Auto) 9.6 H Lymph # (Auto) 3.5 Ness # (Auto) 1.3 H Eos # (Auto) 0.3 Baso # (Auto) 0.0 Immature Gran % 1.5 Nucleated RBC % 0.0 Immature Gran # 0.23 Nucleated RBCs # 0.00 Immature Plt Fraction 0.0 Sodium 139 Potassium 4.4 Chloride 103 Carbon Dioxide 31 Anion Gap 9.4 BUN 16 Creatinine 1.20 GFR Calculation 80 BUN/Creatinine Ratio 13.00 Glucose 78 POC Glucose 137 H Calculated Osmolality 276.5 Calcium 9.0 Magnesium 2.1 Total Bilirubin 1.00 Direct Bilirubin 0.150 Indirect Bilirubin 0.9 AST 16 ALT 31 Alkaline Phosphatase 79 Total Creatine Kinase 49 D CK-MB (CK-2) 1.0 Troponin I 1.450 H D Total Protein 6.1 L Albumin 3.2 L Globulin 2.9 Albumin/Globulin Ratio 1.1 Quality Measures - VTE Contraindication to Pharmacological VTE Prophylaxis: High Risk of Bleeding Specialty Discharge - Follow Up or Referrals
[2017-04-15] MEDS: ASPIRIN 325 MG TABLET PO SCH (08:41)
[2017-04-15] MEDS: predniSONE 20 MG TABLET PO SCH (08:42)
[2017-04-15] MEDS: DOCUSATE SODIUM 100 MG CAPSULE PO SCH (08:43)
[2017-04-15] MEDS: FERROUS SULFATE 325 MG TABLET PO SCH (08:43)
[2017-04-15] MEDS: CHLORHEXIDINE 0.12% ORAL RINSE 60 ML BOTTLE SWISH/SPIT SCH ×2 (08:44→21:22)
[2017-04-15] MEDS: MUPIROCIN 2% OINT 22 GM TUBE TOP SCH ×2 (08:44→21:22)
[2017-04-15] MEDS: CARVEDILOL 12.5 MG TABLET PO SCH ×2 (08:44→21:23)
[2017-04-15] MEDS: PANTOPRAZOLE 40 MG TABLET PO SCH ×2 (08:44→21:23)
[2017-04-15] MEDS: ATORVASTATIN 10 MG TABLET PO SCH ×2 (08:44→21:23)
--- NOTE | 2017-04-15 09:25 | EKG Report ---
Stationary ECG Study [facility] Test Date: 04/15/2017 7:39:37 AM Pat Name: CHING SINCLAIR Department: Room: 271 Gender: M Hospice Fellow: LAWRENCE : 1955 Requested by: Antony Hogue Order Number: [id number] Reading MD: NAEL ALDANA Intervals [place] Rate: 78 P: 35 VA: 150 QRS: -42 QRSD: 105 T: 74 QT: 374 QTc: 407 Interpretive Statements SINUS RHYTHM MARKED LEFT AXIS DEVIATION MINIMAL ST DEPRESSION old inferior PA Electronically Signed On 04-15-17 18:01:02 CDT by NAEL ALDANA [email or web address]
[2017-04-15] MEDS: CLORAZEPATE 3.75 MG TABLET PO SCH ×4 (09:33→21:25)
[2017-04-15] MEDS: ASPIRIN EC 325 MG TABLET PO SCH (09:33)
--- NOTE | 2017-04-15 10:09 | XRay Report ---
2 view chest. Indication: Shortness of breath. Comparison: Yesterday's exam. The heart is enlarged. Post median sternotomy. The pulmonary vasculature is normal. Small right pleural effusion stable. Left basilar atelectasis and pleural effusion stable. Central venous catheter in satisfactory position. Degenerative changes of the spinal column. Surgical clips of the right upper quadrant. Impression: No interval change is seen. PROCEDURE INTERPRETED AT [facility] DEPARTMENT OF RADIOLOGY Final Report Signed by: Dr. Laura Ruggiero
--- NOTE | 2017-04-16 06:26 | Cardiothoracic Progress Note ---
Cardiothoracic Subjective Interval history: Patient is doing well. Vital signs have been stable and is breathing comfortably. He is increasing his activity and I think he will be ready for discharge in the morning. Exam (Progress Note) - Constitutional Vitals: Period Temp Pulse Resp BP Sys/Mann Pulse Ox Last 24 Hr 97.1 F-98.5 F 63-90 16-20 101-130/41-72 92-96 Result/EKG - Labs CBC & BMP: 04/15/17 04:49 04/15/17 04:49 Labs: Laboratory Results - last 24 hr 04/15/17 04/15/17 04/15/17 04:49 07:45 11:54 Sodium 139 Potassium 4.4 Chloride 103 Carbon Dioxide 31 Anion Gap 9.4 BUN 16 Creatinine 1.20 GFR Calculation 80 BUN/Creatinine Ratio 13.00 Glucose 78 POC Glucose 84 120 H Calculated Osmolality 276.5 Calcium 9.0 Magnesium 2.1 Total Bilirubin 1.00 Direct Bilirubin 0.150 Indirect Bilirubin 0.9 AST 16 ALT 31 Alkaline Phosphatase 79 Total Creatine Kinase 49 D CK-MB (CK-2) 1.0 Troponin I 1.450 H D Total Protein 6.1 L Albumin 3.2 L Globulin 2.9 Albumin/Globulin Ratio 1.1 04/15/17 04/15/17 16:38 19:50 Sodium Potassium Chloride Carbon Dioxide Anion Gap BUN Creatinine GFR Calculation BUN/Creatinine Ratio Glucose POC Glucose 146 H 211 H Calculated Osmolality Calcium Magnesium Total Bilirubin Direct Bilirubin Indirect Bilirubin AST ALT Alkaline Phosphatase Total Creatine Kinase CK-MB (CK-2) Troponin I Total Protein Albumin Globulin Albumin/Globulin Ratio Quality Measures - VTE Contraindication to Pharmacological VTE Prophylaxis: High Risk of Bleeding Specialty Discharge - Follow Up or Referrals
[2017-04-16] MEDS: DOCUSATE SODIUM 100 MG CAPSULE PO SCH (09:38)
[2017-04-16] MEDS: MUPIROCIN 2% OINT 22 GM TUBE TOP SCH ×2 (09:38→20:48)
[2017-04-16] MEDS: ASPIRIN 325 MG TABLET PO SCH (09:38)
[2017-04-16] MEDS: CARVEDILOL 12.5 MG TABLET PO SCH ×2 (09:39→20:47)
[2017-04-16] MEDS: CHLORHEXIDINE 0.12% ORAL RINSE 60 ML BOTTLE SWISH/SPIT SCH ×2 (09:39→20:48)
[2017-04-16] MEDS: FERROUS SULFATE 325 MG TABLET PO SCH (09:39)
[2017-04-16] MEDS: ATORVASTATIN 10 MG TABLET PO SCH ×2 (09:39→20:47)
[2017-04-16] MEDS: PANTOPRAZOLE 40 MG TABLET PO SCH ×2 (09:40→20:47)
[2017-04-16] MEDS: predniSONE 20 MG TABLET PO SCH (09:40)
[2017-04-16] MEDS: oxyCODONE/ACETAMINOPHEN 5-325 MG TABLET PO PRN ×2 (09:41→20:47)
[2017-04-16] MEDS: CLORAZEPATE 3.75 MG TABLET PO SCH ×4 (09:50→20:49)
--- NOTE | 2017-04-17 09:06 | Discharge Summary ---
Hospital Course - Hospital Course Hospital Course: History of present illness: Patient is a 62-year-old man who has known history of coronary disease and has had previous stents placed in his circumflex coronary artery. He presented to [facility] with recurrence of chest pain and troponin elevation cardiac catheterization that demonstrated restenosis in the circumflex coronary artery which had been previously stented. He also had significant disease in the right coronary artery and a first obtuse marginal coronary artery and the patient was referred for bypass surgery. He is admitted for that purpose. Past medical history review of systems social history and family history are documented in previous notes. Hospital course: Patient was taken to surgery and underwent three-vessel bypass grafting with vein graft to the distal circumflex to the obtuse marginal branch of the circumflex and to the right coronary artery. Patient tolerated the procedure well and his postoperative course was essentially uncomplicated. He was discharged home with instructions to return for follow-up in 1 month. Discharge medications are listed below. Specialty Discharge - Follow Up or Referrals Follow up with: Antony Serna MD [Physician] - 1 Month Discharge Plan - Discharge Data Disposition: Disch To Home/Self Care Condition at Discharge: Stable Discharge Diet: advance to your usual diet Activity: resume usual activities as tolerated Hygiene: no restrictions Weight Bearing at Discharge: full weight bearing Driving: not for (10 days) - Discharge Medications New Carvedilol [Coreg] 12.5 mg PO TID #90 tablet oxyCODONE/ACETAMINOPHEN 5-325 [Percocet 5-325] 1 tablet PO Q4H PRN tablet PRN Reason: Pain Mild (1-3) Continue Atorvastatin [Lipitor] 10 mg PO BID Pantoprazole Tab [Protonix Tab] 40 mg PO BID Clorazepate [Tranxene] 7.5 mg PO QID Aspirin 325 mg PO DAILY predniSONE TAB [PredniSONE] 20 mg PO DAILY Discontinued Lisinopril 5 mg PO TID Carvedilol [Coreg] 18.75 mg PO TID Clopidogrel [Plavix] 75 mg PO DAILY - Follow Up or Referral - Forms/Instructions Instructions: Coronary Artery Disease (GEN), Heart Healthy Diet (GEN), Coronary Artery Bypass Graft, Applier (GEN), Sternal Precautions, Applier (GEN) Exam - Constitutional Vitals: Period Temp Pulse Resp BP Sys/Mann Pulse Ox Last 24 Hr 96.4 F-98.2 F 78-93 16-20 111-134/62-73 95-100 Discharge Results Procedures and tests throughout hospitalization: Pending Orders 04/08/17 10:53 Fresh Frozen Plasma Routine Red Blood Cells Leuko Red Routine Single Donor Platelets Routine Type and Screen Routine Labs on day of discharge: Labs from last 24 hours 04/17/17 04/16/17 04/16/17 07:21 19:40 15:17 POC Glucose 85 209 H 125 H 04/16/17 11:37 POC Glucose 76 DS: Provider Date of admission: 04/04/17 16:49 Primary care physician: Izzy Payan NP Attending physician on admission: Antony Serna MD Consults: 04/10/17 07:35 Consult to Cardiac Rehabilitation [CONS] Routine Reason for Cardiac Rehabilitation: Other Consult Comment: Post CABG/heart surgery Consult to [facility], Educator [CONS] Routine Reason for Gynecologist: Diabetes Education Initial Insulin Education Consult Comment: insulin education Consult to Physical Therapy [CONS] Routine Reason for Physical Therapy: Other Consult Comment: CV Rehab Discharging clinician: Antony Serna MD Expected date of discharge: 04/17/17
[2017-04-17] MEDS: ATORVASTATIN 10 MG TABLET PO SCH (09:08)
[2017-04-17] MEDS: ASPIRIN 325 MG TABLET PO SCH (09:08)
[2017-04-17] MEDS: predniSONE 20 MG TABLET PO SCH (09:08)
[2017-04-17] MEDS: DOCUSATE SODIUM 100 MG CAPSULE PO SCH (09:09)
[2017-04-17] MEDS: CLORAZEPATE 3.75 MG TABLET PO SCH (09:09)
[2017-04-17] MEDS: FERROUS SULFATE 325 MG TABLET PO SCH (09:09)
[2017-04-17] MEDS: PANTOPRAZOLE 40 MG TABLET PO SCH (09:09)
[2017-04-17] MEDS: CHLORHEXIDINE 0.12% ORAL RINSE 60 ML BOTTLE SWISH/SPIT SCH (09:12)
[2017-04-17] MEDS: MUPIROCIN 2% OINT 22 GM TUBE TOP SCH (09:13)
[2017-04-17] MEDS: oxyCODONE/ACETAMINOPHEN 5-325 MG TABLET PO PRN (09:15)
[2017-04-17] MEDS: CARVEDILOL 12.5 MG TABLET PO SCH (09:29)
[2017-04-17 11:51] VITALS: BP 117/76
[2017-04-17] MEDS ORDERED: CARVEDILOL 12.5 MG TABLET PO SCH (15:00)
== END 2017-04-17 13:00 | disposition home or self-care (01) | DRG 236 ==
LOC: N.TELES 16:49 → N.CVR 04-09 08:13 → N.ICU 04-10 07:16 → N.TELES 04-10 14:05